=== PATIENT | female | born 1975 | race Hispanic/Latino ===

== ENCOUNTER 2017-11-18 12:14 | Emergency (ER) | payer BC, OTHER ==
[2017-11-18 14:12] LABS: Absolute Lymphocytes (CBC) 1.7 K/uL (0.7-4.9); Absolute Monocytes 0.6 K/uL (0.1-1.3); Absolute Neutrophil 4.6 K/uL (1.8-8.0); Basophils % 0.6 % (0-1.3); Eosinophils % 1.5 % (0-4.4); Hematocrit 43.3 % (36.0-45.0); Lymphocytes % 24.2 % (15.3-44.8); MCH 29.9 pg (27.0-35.0); MCV 90.8 fL (80-100); MPV 9.7 fL (7.6-11.3); Monocytes % 8.6 % (3.3-12.3); RBC Red Blood Cell Count 4.77 M/uL (3.86-4.86)
[2017-11-18 14:20] LABS: Urine Blood 3+ (NEG); Urine Glucose NEGATIVE (NEG); Urine Protein NEGATIVE (NEG); Urine Specific Gravity 1.015 (1.005-1.030)
[2017-11-18 14:20] LABS: Bicarbonate 24 mEq/L (21-31); Glucose Level 97 mg/dL (65-120); Potassium 3.6 mEq/L (3.6-5.0); Sodium Level 140 mEq/L (135-145)
[2017-11-18 14:23] LABS: ALT/SGPT 17 IU/L (10-60); AST/SGOT 20 IU/L (10-42); Albumin 3.9 g/dL (3.2-5.5); Alkaline Phosphatase 48 IU/L (42-121); BUN Blood Urea Nitrogen 11 mg/dL (6-20); Bilirubin Total 0.4 mg/dL (0.3-1.2); Protein, Total 6.8 g/dL (6.0-8.3)
--- NOTE | 2017-11-18 14:56 | RAD REPORT ---
EXAM DESCRIPTION: US - TRANSVAG OB - 11/18/2017 2:39 pm CLINICAL HISTORY: Vaginal bleeding, positive COMPARISON: None. FINDINGS: Any elongated irregular sac is present within the endometrial cavity. If this is a gestati onal sac corresponds to 8 weeks 3 days in size. There is echogenic material present but this cannot b e confirmed as a pole. No cardiac activity within this echogenic material. Small cysts are pres ent in the cervix. No mass or hematoma within the endometrial cavity. No suspicious ovarian or adnexa l finding. Left ovary was not well visualized but no left adnexal abnormality suspected. No free flui d in the cul-de-sac. IMPRESSION: An elongated sac is present in the uterus. This is probably an abnormal gestational sac. No pole confirmed at this time. No hematoma, mass or other intrauterine abnormality. No suspicious adnexal finding.
--- NOTE | 2017-11-18 15:08 | EDPHYS ---
Physician Documentation [facility] Name: Irene Church Age: 42 yrs Sex: Female : 1975 Arrival Date: 11/18/2017 Time: 12:18 Bed 24 Private MD: None, None ED Physician Josué Moctezuma HPI: 11/18 14:54 This 42 yrs old Female presents to ER via Ambulatory with complaints of wa Vaginal Bleeding, + Preg <12wks. 14:54 The patient presents to the emergency department with 9 weeks preg. states spotting x 1 wa week. today noted blood when wipes. denies pelvic or abd pain. states would like baby checked. denies dysuria, or frequency. G5, P4. vag deliveries. The estimated gestational age is 9 weeks. course: care: saw her OB today. Previous pregnancies: in previous pregnancies patient has had vaginal delivery. Associated signs and symptoms: The patient has no apparent associated signs or symptoms. The patient has not experienced similar symptoms in the past. The patient has been recently seen by a physician: saw her OB today. CHEMIST: 12:24 LMP 09/11/2017 14:54 5, Full Term 4, Premature 0, 0, Living 4 wa Historical: - Allergies: 12:23 No Known Allergies; hj - Home Meds: 12:23 Effexor XR 150 mg Oral cp24 1 cap once daily [Active]; Vitamin Oral [Active]; hj - PMHx: 12:23 Depression; hj - PSHx: 12:23 Cholecystectomy; EGD; hj - Immunization history:: Adult Immunizations up to date. - Social history:: Smoking status: Patient/guardian denies using tobacco. - Family history:: not pertinent. - Hospitalizations: : No recent hospitalization is reported. ROS: 14:57 Constitutional: Negative for fever, chills, and weight loss, Eyes: Negative for injury, wa pain, redness, and discharge, ENT: Negative for injury, pain, and discharge, Neck: Negative for injury, pain, and swelling, Cardiovascular: Negative for chest pain, palpitations, and edema, Respiratory: Negative for shortness of breath, cough, wheezing, and pleuritic chest pain, Abdomen/GI: Negative for abdominal pain, nausea, vomiting, diarrhea, and constipation, Back: Negative for injury and pain, MS/Extremity: Negative for injury and deformity, Skin: Negative for injury, rash, and discoloration, Neuro: Negative for headache, weakness, numbness, tingling, and seizure. 14:57 : Positive for vaginal bleeding, Negative for urinary symptoms, pelvic pain, flank pain. 14:57 All other systems are negative. Exam: 14:57 Constitutional: This is a well developed, well nourished patient who is awake, alert, wa and in no acute distress. Head/Face: Normocephalic, atraumatic. Eyes: Pupils equal round and reactive to light, extra-ocular motions intact. Lids and lashes normal. Conjunctiva and sclera are non-icteric and not injected. Cornea within normal limits. Periorbital areas with no swelling, redness, or edema. ENT: Nares patent. No nasal discharge, no septal abnormalities noted. Tympanic membranes are normal and external auditory canals are clear. Oropharynx with no redness, swelling, or masses, exudates, or evidence of obstruction, uvula midline. Mucous membranes moist. Neck: Trachea midline, no thyromegaly or masses palpated, and no cervical lymphadenopathy. Supple, full range of motion without nuchal rigidity, or vertebral point tenderness. No Meningismus. Chest/axilla: Normal chest wall appearance and motion. Nontender with no deformity. No lesions are appreciated. Cardiovascular: Regular rate and rhythm with a normal S1 and S2. No gallops, murmurs, or rubs. Normal PMI, no JVD. No pulse deficits. Respiratory: Lungs have equal breath sounds bilaterally, clear to auscultation and percussion. No rales, rhonchi or wheezes noted. No increased work of breathing, no retractions or nasal flaring. Abdomen/GI: Soft, non-tender, with normal bowel sounds. No distension or tympany. No guarding or rebound. No evidence of tenderness throughout. Back: No spinal tenderness. No costovertebral tenderness. Full range of motion. Skin: Warm, dry with normal turgor. Normal color with no rashes, no lesions, and no evidence of cellulitis. MS/ Extremity: Pulses equal, no cyanosis. Neurovascular intact. Full, normal range of motion. Neuro: Awake and alert, GCS 15, oriented to person, place, time, and situation. Cranial nerves II-XII grossly intact. Motor strength 5/5 in all extremities. Sensory grossly intact. Cerebellar exam normal. Normal gait. Psych: Awake, alert, with orientation to person, place and time. Behavior, mood, and affect are within normal limits. Vital Signs: 12:24 BP 112 / 60; Pulse 89; Resp 18; Temp 98.4(TE); Pulse Ox 99% on R/A; Weight 88 kg; hj Height 5 ft. 3 in. (160.02 cm); Pain 0/10; 13:42 BP 113 / 79; Pulse 74; Resp 18; Pulse Ox 98% on R/A; tw2 14:56 BP 118 / 82; Pulse 87; Resp 18; Pulse Ox 100% on R/A; tw2 12:24 Body Mass Index 34.37 (88.00 kg, 160.02 cm) hj MDM: 12:46 Patient medically screened. sc 14:58 Differential diagnosis: ectopic . sc 15:04 Data reviewed: vital signs, nurses notes, lab test result(s). Test interpretation: by sc ED physician or midlevel provider: labs noted for ABO/RH O pos. Beta quant 81304. US: abnml gestational sac. No suspicious findings in adnexa, per radiologist. Response to treatment: the patient's symptoms have mildly improved after treatment. 11/18 13:23 Order name: Quantitative Hcg; Complete Time: 14:59 sc 11/18 13:23 Order name: Abo/rh Typing; Complete Time: 14:59 sc 11/18 13:23 Order name: CBC with Diff; Complete Time: 14:59 sc 11/18 13:23 Order name: CMP; Complete Time: 14:59 sc 11/18 13:52 Order name: Urine Dipstick--Ancillary (enter results); Complete Time: 14:59 ag 11/18 13:23 Order name: IV Saline Lock; Complete Time: 13:33 sc 11/18 13:23 Order name: Labs collected and sent; Complete Time: 13:33 sc 11/18 13:23 Order name: NPO; Complete Time: 13:24 sc 11/18 13:23 Order name: Urine Dipstick-Ancillary (obtain specimen); Complete Time: 13:50 sc 11/18 13:52 Order name: Urine --Ancillary (enter results); Complete Time: 14:59 ag 11/18 14:38 Order name: TRANSVAG OB; Complete Time: 14:59 EDMS Administered Medications: No medications were administered Point of Care Testing: Urine : 14:37 hCG Reading: Positive; tw2 Disposition: 11/18/17 15:08 Discharged to Home. Impression: Abnormal , Blighted ovum, vaginal bleeding. - Condition is Stable. - Discharge Instructions: Blighted Ovum. - Medication Reconciliation Form, Thank You Letter, Antibiotic Education, Prescription Opioid Use form. - Follow up: Sree Childers MD; When: 1 - 2 days; Reason: Recheck today's complaints. - Problem is new. - Symptoms have improved. - Notes: follow up with Dr. Childers. As discussed with you, this appears to be abnormal as we do not see a normal pole although your hormone levels show we should be seeing one this far out in Signatures: Dispatcher [employer] EDMS Eron Bernard RN RN hj Tita De Luna RN RN tw2 Josué Moctezuma MD MD sc Corrections: (The following items were deleted from the chart) 13:47 13:44 BASIC METABOLIC PANEL+C.LAB.BRZ ordered. EDMS EDMS 14:38 13:44 Pelvis Complete+US.RAD.BRZ ordered. EDME EDMS 15:15 15:08 11/18/2017 15:08 Discharged to Home. Impression: Abnormal ; Blighted tw2 ovum; vaginal bleeding. Condition is Stable. Forms are Medication Reconciliation Form, Thank You Letter, Antibiotic Education, Prescription Opioid Use. Follow up: Sree Childers; When: 1 - 2 days; Reason: Recheck today's complaints. Problem is new. Symptoms have improved. wa
--- NOTE | 2017-11-18 15:08 | ER ---
Nurse's Notes [facility] Name: Irene Church Age: 42 yrs Sex: Female : 1975 Arrival Date: 11/18/2017 Time: 12:18 Bed 24 Private MD: None, None Diagnosis: Abnormal ;Blighted ovum;vaginal bleeding Presentation: 11/18 12:21 Presenting complaint: Patient states: LMP- 09/11/17; i noticed bleeding light pink, last hj week and now its red in color; spotty in nature; went to an appointment today, SNOUT PULLER did hear a heart beat but i wasn't bleeding at that time, now i am; denies abd pain, denies nausea and vomiting;. Transition of care: patient was not received from another setting of care. Onset of symptoms was November 18, 2017. Initial Sepsis Screen: Does the patient meet any 2 criteria? No. Patient's initial sepsis screen is negative. Does the patient have a suspected source of infection? No. Patient's initial sepsis screen is negative. Care prior to arrival: None. 12:21 Method Of Arrival: Ambulatory 12:21 Acuity: ANDERS 3 hj Triage Assessment: 12:23 General: Appears in no apparent distress. uncomfortable, Behavior is calm, cooperative, hj appropriate for age. Pain: Denies pain. : Reports vaginal bleeding that is. [employer]CH[employer]ICIAN: 12:24 LMP 09/11/2017 14:54 5, Full Term 4, Premature 0, 0, Living 4 wa Historical: - Allergies: 12:23 No Known Allergies; hj - Home Meds: 12:23 Effexor XR 150 mg Oral cp24 1 cap once daily [Active]; Vitamin Oral [Active]; hj - PMHx: 12:23 Depression; hj - PSHx: 12:23 Cholecystectomy; EGD; hj - Immunization history:: Adult Immunizations up to date. - Social history:: Smoking status: Patient/guardian denies using tobacco. - Family history:: not pertinent. - Hospitalizations: : No recent hospitalization is reported. Screenin:56 Abuse screen: Denies threats or abuse. Nutritional screening: No deficits noted. tw2 Tuberculosis screening: No symptoms or risk factors identified. Fall Risk None identified. Assessment: 12:45 General: Appears in no apparent distress. well groomed, Behavior is calm, cooperative, tw2 appropriate for age. Pain: Denies pain. Neuro: Level of Consciousness is awake, alert, obeys commands, Oriented to person, place, time, situation. Cardiovascular: Denies chest pain, shortness of breath, Heart tones S1 S2 Capillary refill < 3 seconds Patient's skin is warm and dry. Respiratory: Airway is patent Respiratory effort is even, unlabored, Respiratory pattern is regular, symmetrical, Breath sounds are clear bilaterally. GI: No signs and/or symptoms were reported involving the gastrointestinal system. : Reports "bright red bleeding when I wipe" "I was just at the OB doctor this morning". Derm: No signs and/or symptoms reported regarding the dermatologic system. Musculoskeletal: No signs and/or symptoms reported regarding the musculoskeletal system. Range of motion: intact in all extremities. 13:44 Obstetrical Assessment: Patient reports "bright red bleeding when I wipe". tw2 14:35 Reassessment: pt in US at this time, not available for VS. tw2 14:55 Reassessment: Patient appears in no apparent distress at this time. No changes from tw2 previously documented assessment. Patient and/or family updated on plan of care and expected duration. Pain level reassessed. Patient is alert, oriented x 3, equal unlabored respirations, skin warm/dry/pink. Vital Signs: 12:24 BP 112 / 60; Pulse 89; Resp 18; Temp 98.4(TE); Pulse Ox 99% on R/A; Weight 88 kg; hj Height 5 ft. 3 in. (160.02 cm); Pain 0/10; 13:42 BP 113 / 79; Pulse 74; Resp 18; Pulse Ox 98% on R/A; tw2 14:56 BP 118 / 82; Pulse 87; Resp 18; Pulse Ox 100% on R/A; tw2 12:24 Body Mass Index 34.37 (88.00 kg, 160.02 cm) Vitals: 13:43 Heart Tones n/a provider ordered transvaginal us. tw2 ED Course: 12:18 Patient arrived in ED. mr 12:18 None, None is Private Physician. mr 12:23 Triage completed. hj 12:24 Arm band placed on left wrist. hj 12:45 Josué Moctezuma MD is Attending Physician. wa 12:46 De Luna, Tita, RN is Primary Nurse. tw2 12:47 Placed in gown. Bed in low position. Pulse ox on. NIBP on. Door closed. Warm blanket tw2 given. 13:30 Inserted saline lock: 20 gauge in right antecubital area, using aseptic technique. tw2 Blood collected. 14:37 No provider procedures requiring assistance completed. tw2 14:39 TRANSVAG OB In Process Unspecified. EDMO 15:06 Sree Childers MD is Referral Physician. wa 15:15 IV discontinued, intact, bleeding controlled, No redness/swelling at site. Pressure tw2 dressing applied. Administered Medications: No medications were administered Point of Care Testing: Urine : 14:37 hCG Reading: Positive; tw2 Outcome: 15:08 Discharge ordered by . wa 15:15 Discharged to home ambulatory. tw2 15:15 Condition: stable 15:15 Discharge instructions given to patient, Instructed on discharge instructions, follow up and referral plans. Demonstrated understanding of instructions, follow-up care. 15:15 Patient left the ED. tw2 Signatures: Dispatcher [employer] [facility] Karin Santos Henry, RN RN Tita De Luna, RADHA RN tw2 Josué Moctezuma MD MD wa Corrections: (The following items were deleted from the chart) 12:26 12:24 Pulse 89bpm; Resp 18bpm; Pulse Ox 99% RA; Temp 98.4F Temporal; 88 kg; Height 5 hj ft. 3 in.; BMI: 34.3; Pain 0/10; hj
== END 2017-11-18 15:15 | disposition home or self-care (01) ==
LOC: ER 12:14
DX: O02.0 Blighted ovum and nonhydatidiform mole (principal)
CPT/HCPCS: 36415; 76813; 80053; 81003; 81025; 84702; 85025; 86900; 86901; 99284

== ENCOUNTER 2017-11-26 06:00 | Day surgery (SDC) | payer OTHER ==
[2017-11-25 17:09] LABS: Absolute Lymphocytes (CBC) 2.5 K/uL (0.7-4.9); Absolute Monocytes 0.5 K/uL (0.1-1.3); Eosinophils % 2.1 % (0-4.4); Hematocrit 43.6 % (36.0-45.0); MCH 30.4 pg (27.0-35.0); MPV 9.5 fL (7.6-11.3); Monocytes % 5.6 % (3.3-12.3); RBC Red Blood Cell Count 4.85 M/uL (3.86-4.86)
[2017-11-25 17:25] LABS: Urine Appearance CLEAR; Urine Bilirubin NEGATIVE (NEG); Urine Blood 3+ (NEG); Urine Color YELLOW; Urine Glucose NEGATIVE (NEG); Urine Protein NEGATIVE (NEG); Urine Specific Gravity >=1.030 (1.005-1.030); Urine pH 5.5 (5.0-7.0)
[2017-11-25 17:31] LABS: Urine Microscopic Reflex ORDER UMIC
[2017-11-25 17:54] LABS: Urine Bacteria 20-50 /HPF (<20); Urine Culture Reflex Order REFLEXED
[2017-11-26] MEDS ORDERED: OXYTOCIN 10 UNIT/ML ML IV ONE ×2 (06:19→06:44)
[2017-11-26] MEDS ORDERED: Ringers Lactate 1,000 ML IV ONE ×2 (06:19→08:01)
[2017-11-26] MEDS ORDERED: CEFAZOLIN/SWI 1gm 1 GM/10 ML SYR ONE (06:19)
[2017-11-26] MEDS ORDERED: SILVER NITRATE 1 APPL TOP ONE (06:42)
[2017-11-26] MEDS ORDERED: METHYLERGONOVINE 0.2MG/ML AMP IM ONE (06:43)
[2017-11-26] MEDS ORDERED: FENTANYL CITR 100 MCG/2 ML ONE ×2 (06:45→07:28)
[2017-11-26] MEDS ORDERED: MIDAZOLAM HCL 2 MG/2 ML INJ ONE (06:45)
[2017-11-26] MEDS ORDERED: PROPOFOL 200 MG/20 ML VIAL IV ONE (06:45)
[2017-11-26] MEDS ORDERED: KETOROLAC 30 MG/ML INJ ONE (07:56)
[2017-11-26] MEDS ORDERED: KETOROLAC 30 MG/ML INJ IV ONE (07:58)
--- NOTE | 2017-11-26 11:56 | PREOPHP ---
Date of Admission: 11/26/2017 History Of Present Illness: This is a 42-year-old, multiparous female, first trimester missed aborti on. She is Rh positive, therefore no RhoGAM necessary. Options discussed including expected managem ent. The patient wishes to proceed with D and C. Infection, blood loss, anesthetic complications, i njury to bladder, bowel, ureter, postoperative complications, clots in legs, and pneumonia discussed. The patient knows fully well this does not constitute all the possible problems that could occur du ring or following surgery. Family History: The patient has had gallstones and her mother is had gallstones. Mother has hyperte nsion. Father with prostate cancer. The patient has been on Effexor prior to the , and on Herbal Life for weight loss. Social History: She does not smoke. She does have dentures. She knows to remove these prior to noa betty tomorrow morning. Physical Examination: HEENT: Clear. Pupils equal, round, and reactive to light and accommodation. Conjunctivae well perf used. No oral, lingual, or buccal lesions. Chest and Lungs: Clear. Heart: Without murmurs, thrills, heaves, or rubs. Breasts: Not examined. Abdomen: Obese but clear. Uterus is irregular. The patient is known to have fibroids and is in abo ut the 9 to 11 weeks size range. Cervix cleaned. Laminaria tent inserted and packing placed. We are clear for surgery tomorrow [facility]. Full discussion with patient and . CHINYERE/YARELY Voice ID: [id number]
--- NOTE | 2017-11-26 19:12 | DS ---
Date of Discharge: 11/26/2017 Hospital Course: The patient underwent suction curettage for missed , general anesthesia, an d endotracheal intubation. Blood loss of less than 50 cc. She had 1 g of Ancef given for prophylaxi s. She will be observed for 2 hours, then dismissed. She is to return to my office in 1 week for fo llowup. She is to report any temperature elevation of 100 degrees or greater, severe pain, heavy ble eding, or any other type of abnormalities. Dismissed with Cytotec to be taken 100 mcg every 4 hours for 4 doses, doxycycline to be taken 3 times once tonight, twice tomorrow. She is Rh positive, there fore no RhoGAM needed. Final Diagnoses: First trimester, missed , suction curettage for uterine evacuation, and gen eral anesthesia. CHINYERE/YARELY Voice ID: [id number] Report ID: [id number]
--- NOTE | 2017-11-29 11:48 | OP ---
Surgeon: Sree Childers MD Indications For Procedure: Irene Church was 42-year-old, multiparous female, first trimester, miss ed . Rh positive, therefore no RhoGAM needed. Infection, blood loss, anesthetic complicatio ns injury to bladder, bowel, ureter, postoperative complications, clots in legs, and pneumonia discus sed. The patient knows fully well this does not constitute all the possible problems that could occu r during or following surgery. Anesthesia: General anesthesia, endotracheal intubation. Description Of Procedure: Time-out performed. Laminaria tent and packing placed the evening prior w ere removed. The patient received 1 g of Ancef preoperatively. Ring clamp was placed on the anterio r cervical lip. The cervix admitted the largest dilator without any difficulty. A 10 mm curved suct ion curette was used to evacuate the obviously necrotic intrauterine contents. After suction curetta ge, sharp curettement, a second suction and a second sharp curettement was performed. 0.2 mg of Methe rgine given IM. Blood Loss: 50 cc or less. The patient tolerated all procedures well. Procedure was discontinued. The patient was sent to the recovery room in good condition. Final Diagnoses: First trimester, missed , and suction curettage for uterine evacuation. CHINYERE/YARELY Voice ID: [id number] Report ID: [id number]
== END 2017-11-26 10:35 | disposition home or self-care (01) ==
LOC: OR 06:00
PROVIDERS: ATTEND Specialist
PROC: 10D17ZZ Extraction of Products of Conception, Retained, Via Natural or Artificial Opening (ICD-10-PCS; principal; 2017-11-26 07:30)
DX: O02.1 Missed abortion (principal)
CPT/HCPCS: 36415; 81003; 81015; 85025; 85610; 85730; 86850; 86900; 86901; 87086; 87088; 88305; J0690; J2210; J2250; J2590; J3010

== ENCOUNTER 2018-10-07 12:50 | Day surgery (SDC) | payer OTHER, SELFPAY ==
[2018-10-07 13:38] LABS: Absolute Lymphocytes (CBC) 2.5 K/uL (0.7-4.9); Absolute Monocytes 0.8 K/uL (0.1-1.3); Absolute Neutrophil 10.2 K/uL (1.8-8.0); Basophils % 0.8 % (0-1.3); Eosinophils % 1.5 % (0-4.4); Hematocrit 43.3 % (36.0-45.0); MPV 10.1 fL (7.6-11.3); Monocytes % 5.8 % (3.3-12.3); RBC Red Blood Cell Count 4.77 M/uL (3.86-4.86)
[2018-10-07] MEDS ORDERED: FAMOTIDINE 20 MG/2 ML VIAL IV ONE (13:38)
[2018-10-07] MEDS ORDERED: MORPHINE 4 MG/ML SYR ONE (13:38)
[2018-10-07] MEDS ORDERED: ONDANSETRON 4 MG/2 ML VIAL ONE ×2 (13:38→19:53)
[2018-10-07 13:59] LABS: Albumin 3.8 g/dL (3.4-5.0); Bilirubin Direct 0.1 mg/dL (0-0.2); Bilirubin Total 0.3 mg/dL (0.2-1.0); Potassium 3.1 mmol/L (3.5-5.1); Protein, Total 7.4 g/dL (6.4-8.2)
[2018-10-07 14:22] LABS: Urine Blood 2+ (NEG); Urine Glucose NEGATIVE (NEG); Urine Protein 3+ (NEG); Urine pH 5.5 (5.0-7.0)
--- NOTE | 2018-10-07 15:31 | RAD REPORT ---
EXAM DESCRIPTION: CT - Abdomen Pelvis W Contrast - 10/07/2018 3:11 pm CLINICAL HISTORY: Abdominal pain. Right upper quadrant. COMPARISON: 2016 ultrasound TECHNIQUE: Computed axial tomography of the abdomen and pelvis was obtained. 100 cc Isovue-300 is ad ministered intravenously. Oral contrast was given. All CT scans are performed using dose optimization technique as appropriate and may include automated exposure control or mA/KV adjustment according to patient size. FINDINGS: The liver, spleen, pancreas, adrenals and kidneys appear unremarkable. The appendix is normal caliber. There is no evidence of diverticulitis A 10 centimeter left adnexal mass is heterogeneous. It contains mostly consistent with a dermoid. No significant free fluid IMPRESSION: 10 centimeter left adnexal dermoid
[2018-10-07] MEDS ORDERED: KETOROLAC 30 MG/ML INJ ONE ×2 (16:27→19:52)
--- NOTE | 2018-10-07 16:46 | EDPHYS ---
Physician Documentation [facility] Name: Irene Church Age: 43 yrs Sex: Female : 1975 Arrival Date: 10/07/2018 Time: 12:51 Bed 7 Private MD: Jacobo Harrington R ED Physician Farrukh Martinez HPI: 10/07 13:15 This 43 yrs old Female presents to ER via Ambulatory with complaints of ros Abdominal Pain, Back Pain. 13:15 The patient presents with pain that is acute. The symptoms are located in the low back. ros 13:15 The patient presents with abdominal pain in the epigastric area, in the upper abdomen, ros in the right upper quadrant, right lower quadrant. Onset: The symptoms/episode began/occurred yesterday. Onset: The symptoms/episode began/occurred 1 day(s) ago. The pain does not radiate. Associated signs and symptoms: The patient has no apparent associated signs or symptoms. The problem was sustained from unknown cause. Modifying factors: The patient symptoms are alleviated by nothing, the patient symptoms are aggravated by nothing. Severity of symptoms: At their worst the symptoms were moderate, in the emergency department the symptoms have improved, mildly. 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 tw2 Historical: - Allergies: 13:01 No Known Allergies; ch - Home Meds: 13:01 Effexor XR 150 mg Oral cp24 1 cap once daily [Active]; herbalife enegry pills [Active]; ch - PMHx: 13:01 Depression; Anxiety; ch 13:02 rls; ch - PSHx: 13:01 Cholecystectomy; EGD; ch - Immunization history:: Adult Immunizations up to date. - Social history:: Smoking status: Patient/guardian denies using tobacco, Patient uses street drugs, marijuana, Patient/guardian denies using alcohol. - Ebola Screening: : Patient negative for fever greater than or equal to 101.5 degrees Fahrenheit, and additional compatible Ebola Virus Disease symptoms Patient denies exposure to infectious person Patient denies travel to an Ebola-affected area in the 21 days before illness onset No symptoms or risks identified at this time. - Family history:: not pertinent. ROS: 13:15 Constitutional: Negative for fever, chills, and weight loss, Eyes: Negative for injury, ros pain, redness, and discharge, ENT: Negative for injury, pain, and discharge, Neck: Negative for injury, pain, and swelling, Cardiovascular: Negative for chest pain, palpitations, and edema, Respiratory: Negative for shortness of breath, cough, wheezing, and pleuritic chest pain, Back: Negative for injury and pain, : Negative for injury, bleeding, discharge, and swelling, MS/Extremity: Negative for injury and deformity, Skin: Negative for injury, rash, and discoloration, Neuro: Negative for headache, weakness, numbness, tingling, and seizure, Psych: Negative for depression, anxiety, suicide ideation, homicidal ideation, and hallucinations, Allergy/Immunology: Negative for hives, rash, and allergies, Endocrine: Negative for neck swelling, polydipsia, polyuria, polyphagia, and marked weight changes, Hematologic/Lymphatic: Negative for swollen nodes, abnormal bleeding, and unusual bruising. 13:15 Abdomen/GI: Positive for abdominal pain, of the epigastric area, posterior aspect of right lateral abdomen, anterior aspect of right lateral abdomen, right upper quadrant and right lower quadrant. Exam: 13:15 Constitutional: This is a well developed, well nourished patient who is awake, alert, ros and in no acute distress. Head/Face: Normocephalic, atraumatic. Eyes: Pupils equal round and reactive to light, extra-ocular motions intact. Lids and lashes normal. Conjunctiva and sclera are non-icteric and not injected. Cornea within normal limits. Periorbital areas with no swelling, redness, or edema. ENT: Nares patent. No nasal discharge, no septal abnormalities noted. Tympanic membranes are normal and external auditory canals are clear. Oropharynx with no redness, swelling, or masses, exudates, or evidence of obstruction, uvula midline. Mucous membranes moist. Neck: Trachea midline, no thyromegaly or masses palpated, and no cervical lymphadenopathy. Supple, full range of motion without nuchal rigidity, or vertebral point tenderness. No Meningismus. Chest/axilla: Normal chest wall appearance and motion. Nontender with no deformity. No lesions are appreciated. Cardiovascular: Regular rate and rhythm with a normal S1 and S2. No gallops, murmurs, or rubs. Normal PMI, no JVD. No pulse deficits. Respiratory: Lungs have equal breath sounds bilaterally, clear to auscultation and percussion. No rales, rhonchi or wheezes noted. No increased work of breathing, no retractions or nasal flaring. Back: No spinal tenderness. No costovertebral tenderness. Full range of motion. Female : Normal external genitalia. Skin: Warm, dry with normal turgor. Normal color with no rashes, no lesions, and no evidence of cellulitis. MS/ Extremity: Pulses equal, no cyanosis. Neurovascular intact. Full, normal range of motion. Neuro: Awake and alert, GCS 15, oriented to person, place, time, and situation. Cranial nerves II-XII grossly intact. Motor strength 5/5 in all extremities. Sensory grossly intact. Cerebellar exam normal. Normal gait. Psych: Awake, alert, with orientation to person, place and time. Behavior, mood, and affect are within normal limits. 13:15 Abdomen/GI: Inspection: abdomen appears normal, Bowel sounds: normal, Palpation: moderate abdominal tenderness, in the epigastric area, right upper quadrant and right lower quadrant. Vital Signs: 12:58 BP 76 / 35 RA Sitting (auto/reg); Pulse 123; Resp 22; Pulse Ox 92% on R/A; ch 13:02 BP 108 / 57 Supine; Pulse 92; Resp 14; Pulse Ox 100% on R/A; hb 15:00 BP 119 / 68; Pulse 100; Resp 15; Pulse Ox 99% on R/A; hb 16:19 BP 108 / 57; Pulse 85; Resp 17; Pulse Ox 100% on R/A; tw2 17:09 Temp 97.9(TE); tw2 17:28 BP 129 / 85; Pulse 86; Resp 16; Pulse Ox 100% on R/A; Pain 3/10; hb 12:58 pt is pale and states she thinks she needs to pass out. MDM: 13:04 Patient medically screened. [facility] 13:19 Data reviewed: vital signs, nurses notes, lab test result(s), EKG, radiologic studies, [facility] CT scan. 10/07 13:15 Order name: Basic Metabolic Panel; Complete Time: 16:02 [facility] 10/07 13:15 Order name: CBC with Diff; Complete Time: 16:02 [facility] 10/07 13:15 Order name: Creatinine for Radiology; Complete Time: 16:02 [facility] 10/07 13:15 Order name: Hepatic Function; Complete Time: 16:02 [facility] 10/07 13:15 Order name: Lipase; Complete Time: 16:02 [facility] 10/07 13:15 Order name: Urine Culture [facility] 10/07 13:15 Order name: CT Abd/Pelvis - W/Contrast; Complete Time: 16:02 [facility] 10/07 13:58 Order name: Urine Dipstick--Ancillary (enter results); Complete Time: 16:02 10/07 13:58 Order name: Urine --Ancillary (enter results); Complete Time: 16:02 10/07 16:04 Order name: US Transvaginal Study (Probe) [facility] 10/07 16:21 Order name: CA 125 Antigen [facility] 10/07 16:53 Order name: PT-INR [facility] 10/07 16:53 Order name: Ptt, Activated [facility] 10/07 17:25 Order name: Type And Screen 10/07 13:15 Order name: IV Saline Lock; Complete Time: 13:50 [facility] 10/07 13:15 Order name: Labs collected and sent; Complete Time: 13:50 [facility] 10/07 13:15 Order name: Urine Dipstick-Ancillary (obtain specimen); Complete Time: 13:50 [facility] 10/07 13:15 Order name: Urine Test (obtain specimen); Complete Time: 13:50 [facility] 10/07 16:53 Order name: Chest Single View XRAY [facility] 10/07 16:53 Order name: EKG; Complete Time: 16:53 [facility] 10/07 16:53 Order name: EKG - Nurse/Tech; Complete Time: 17:31 [facility] 10/07 17:27 Order name: RAD [facility] 10/07 17:09 Order name: NPO; Complete Time: 17:58 [facility] 10/07 17:20 Order name: Labs - recollect needed; Complete Time: 17:58 iw Administered Medications: 13:33 Drug: Pepcid 20 mg Route: IVP; Site: right antecubital; hb 14:33 Follow up: Response: No adverse reaction tw2 13:33 Drug: Zofran 4 mg Route: IVP; Site: right antecubital; hb 14:33 Follow up: Response: No adverse reaction tw2 16:18 Drug: TORadol 30 mg Route: IVP; Site: right antecubital; tw2 16:48 Follow up: Response: No adverse reaction tw2 16:41 CANCELLED (Duplicate Order): Potassium Effervescent Tablet 25 mEq PO once; dissolve in ros 4 ounces of water or juice 17:08 Drug: Potassium Chloride 20 mEq Route: IV; Rate: per protocol; Site: right antecubital; tw2 17:55 Follow up: IV Status: Infusion continued upon admission tw2 17:08 Drug: NS 0.9% with KCl 20 mEq/L 1000 ml Route: IV; Rate: 125 ml/hr; Site: right tw2 antecubital; 17:55 Follow up: IV Status: Infusion continued upon admission tw2 17:23 Not Given (Patient Refused): morphine 4 mg IVP once tw2 Disposition: 10/07/18 16:45 Hospitalization ordered by Felisa Hernandez for Inpatient Admission. Preliminary diagnosis are Abdominal tenderness, Unspecified ovarian cysts - 12 cm left dermoid, Hypokalemia. - Bed requested for Telemetry/MedSurg (Inpatient). - Status is Inpatient Admission. tw2 - Condition is Stable. - Problem is new. - Symptoms have improved. UTI on Admission? No Signatures: Dispatcher [employer] EDMS Adriana Garcia RN RN ch Anderson, Corey, MD MD cha Williams, Irene, RN RN Nicolle Marrufo RN RN hb Wise, Tara, RN RN tw2 Purvi Youssef Corrections: (The following items were deleted from the chart) 16:41 16:19 Potassium Effervescent Tablet 25 mEq PO once; dissolve in 4 ounces of water or ros juice ordered. [facility] 16:41 16:19 Fluid Challenge ordered. pending sale to [facility] 16:53 16:45 Hospitalization Ordered by Felisa Hernandez MD for Observation. Preliminary [facility] diagnosis is Abdominal tenderness; Unspecified ovarian cysts - 12 cm left dermoid; Hypokalemia. Bed requested for Operating Room. Status is Observation. Condition is Stable. Problem is new. Symptoms have improved. UTI on Admission? No. [facility] 17:21 16:53 10/07/2018 16:45 Hospitalization Ordered by Felisa Hernandez MD for Inpatient eb Admission. Preliminary diagnosis is Abdominal tenderness; Unspecified ovarian cysts - 12 cm left dermoid; Hypokalemia. Bed requested for Operating Room. Status is Inpatient Admission. Condition is Stable. Problem is new. Symptoms have improved. UTI on Admission? No. ros 17:54 17:21 10/07/2018 16:45 Hospitalization Ordered by Felisa Hernandez MD for Inpatient tw2 Admission. Preliminary diagnosis is Abdominal tenderness; Unspecified ovarian cysts - 12 cm left dermoid; Hypokalemia. Bed requested for Telemetry/MedSurg (Inpatient). Status is Inpatient Admission. Condition is Stable. Problem is new. Symptoms have improved. UTI on Admission? No. eb
--- NOTE | 2018-10-07 16:46 | ER ---
Nurse's Notes [facility] Name: Irene Church Age: 43 yrs Sex: Female : 1975 Arrival Date: 10/07/2018 Time: 12:51 Bed 7 Private MD: Jacobo Harrington R Diagnosis: Abdominal tenderness;Unspecified ovarian cysts-12 cm left dermoid;Hypokalemia Presentation: 10/07 13:00 Presenting complaint: Patient states: pain to RUQ/R flank, started yesterday, went away, back today. denies nvd. Transition of care: patient was not received from another setting of care. Onset of symptoms was October 06, 2018 at 08:00. Risk Assessment: Do you want to hurt yourself or someone else? Patient reports no desire to harm self or others. Initial Sepsis Screen: Does the patient meet any 2 criteria? No. Patient's initial sepsis screen is negative. Does the patient have a suspected source of infection? No. Patient's initial sepsis screen is negative. Care prior to arrival: None. 13:00 Method Of Arrival: Ambulatory 13:00 Acuity: ANDERS 2 Triage Assessment: 13:09 General: Appears in no apparent distress. uncomfortable, Behavior is cooperative. 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 tw2 Historical: - Allergies: 13:01 No Known Allergies; - Home Meds: 13:01 Effexor XR 150 mg Oral cp24 1 cap once daily [Active]; herbalife enegry pills [Active]; - PMHx: 13:01 Depression; Anxiety; 13:02 rls; - PSHx: 13:01 Cholecystectomy; EGD; - Immunization history:: Adult Immunizations up to date. - Social history:: Smoking status: Patient/guardian denies using tobacco, Patient uses street drugs, marijuana, Patient/guardian denies using alcohol. - Ebola Screening: : Patient negative for fever greater than or equal to 101.5 degrees Fahrenheit, and additional compatible Ebola Virus Disease symptoms Patient denies exposure to infectious person Patient denies travel to an Ebola-affected area in the 21 days before illness onset No symptoms or risks identified at this time. - Family history:: not pertinent. Screenin:11 Abuse screen: Denies threats or abuse. Nutritional screening: No deficits noted. tw2 Tuberculosis screening: No symptoms or risk factors identified. Fall Risk None identified. Assessment: 13:15 General: Appears in no apparent distress. Behavior is calm, cooperative. Pain: Pain hb currently is 7 out of 10 on a pain scale. Neuro: Level of Consciousness is awake, alert, obeys commands, Oriented to person, place, time, situation. Cardiovascular: Capillary refill < 3 seconds Patient's skin is warm and dry. Respiratory: Airway is patent Trachea midline Respiratory effort is even, unlabored, Respiratory pattern is regular, symmetrical, Breath sounds are clear bilaterally. GI: Abdomen is non-distended, Bowel sounds present X 4 quads. Abd is soft and non tender X 4 quads. Reports right flank pain. : : No signs and/or symptoms were reported regarding the genitourinary system. EENT: No signs and/or symptoms were reported regarding the EENT system. Derm: Skin is intact, is healthy with good turgor. Musculoskeletal: No signs and/or symptoms reported regarding the musculoskeletal system. 14:00 Reassessment: Patient appears in no apparent distress at this time. Patient and/or hb family updated on plan of care and expected duration. Pain level reassessed. Patient is alert, oriented x 3, equal unlabored respirations, skin warm/dry/pink. 14:34 Reassessment: PT COMPLETED ORAL CONTRAST AT THIS TIME, NO ANSWER IN CT DEPT. tw2 15:00 Reassessment: Patient appears in no apparent distress at this time. Patient and/or hb family updated on plan of care and expected duration. Pain level reassessed. Patient is alert, oriented x 3, equal unlabored respirations, skin warm/dry/pink. 16:00 Reassessment: Patient appears in no apparent distress at this time. Patient and/or hb family updated on plan of care and expected duration. Pain level reassessed. Patient is alert, oriented x 3, equal unlabored respirations, skin warm/dry/pink. 17:00 Reassessment: Patient appears in no apparent distress at this time. Patient and/or hb family updated on plan of care and expected duration. Pain level reassessed. Patient is alert, oriented x 3, equal unlabored respirations, skin warm/dry/pink. Vital Signs: 12:58 BP 76 / 35 RA Sitting (auto/reg); Pulse 123; Resp 22; Pulse Ox 92% on R/A; ch 13:02 BP 108 / 57 Supine; Pulse 92; Resp 14; Pulse Ox 100% on R/A; hb 15:00 BP 119 / 68; Pulse 100; Resp 15; Pulse Ox 99% on R/A; hb 16:19 BP 108 / 57; Pulse 85; Resp 17; Pulse Ox 100% on R/A; tw2 17:09 Temp 97.9(TE); tw2 17:28 BP 129 / 85; Pulse 86; Resp 16; Pulse Ox 100% on R/A; Pain 3/10; hb 12:58 pt is pale and states she thinks she needs to pass out. ED Course: 12:51 Patient arrived in ED. as 12:51 Jacobo Harrington MD is Private Physician. 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 13:00 Bed in low position. Call light in reach. gm/svp global publisher business on. Pulse ox on. NIBP on. tw2 13:01 Triage completed. ch 13:03 Farrukh Martinez MD is Attending Physician. ros 13:09 Arm band placed on. hb 13:12 Inserted saline lock: 20 gauge in right antecubital area, using aseptic technique. ph Blood collected. 13:25 Tita De Luna RN is Primary Nurse. tw2 13:38 EKG done, by refrigeration technician. reviewed by Farrukh Martinez MD. sm3 15:[address] via wheelchair. ka 15:11 CT Abd/Pelvis - W/Contrast In Process Unspecified. EDMS 16:10 called and left a message with Dr. Smith's answering service to please call Dr. josé antonio Martinez for patient consultation. 16:38 Ultrasound completed. Patient tolerated well. Patient moved back from ultrasound. cy 16:40 US Transvaginal Study (Probe) In Process Unspecified. EDMS 16:43 Felisa Hernandez MD is Hospitalizing Provider. ros 17:08 Ptt, Activated Sent. tw2 17:10 X-ray completed. Portable x-ray completed in exam room. Patient tolerated procedure ml well. 17:28 No provider procedures requiring assistance completed. Patient admitted, IV remains in tw2 place. 17:32 Awaiting: attempted to call report was told RADHA Cabrera will have to call me back in 10 tw2 minutues. 17:57 Report given to RADHA Cabrera, informed that pt just left for OR at this time. tw2 Administered Medications: 13:33 Drug: Pepcid 20 mg Route: IVP; Site: right antecubital; hb 14:33 Follow up: Response: No adverse reaction tw2 13:33 Drug: Zofran 4 mg Route: IVP; Site: right antecubital; hb 14:33 Follow up: Response: No adverse reaction tw2 16:18 Drug: TORadol 30 mg Route: IVP; Site: right antecubital; tw2 16:48 Follow up: Response: No adverse reaction tw2 16:41 CANCELLED (Duplicate Order): Potassium Effervescent Tablet 25 mEq PO once; dissolve in ros 4 ounces of water or juice 17:08 Drug: Potassium Chloride 20 mEq Route: IV; Rate: per protocol; Site: right antecubital; tw2 17:55 Follow up: IV Status: Infusion continued upon admission tw2 17:08 Drug: NS 0.9% with KCl 20 mEq/L 1000 ml Route: IV; Rate: 125 ml/hr; Site: right tw2 antecubital; 17:55 Follow up: IV Status: Infusion continued upon admission tw2 17:23 Not Given (Patient Refused): morphine 4 mg IVP once tw2 Outcome: 16:45 Decision to Hospitalize by Provider. [facility] 17:28 Condition: stable tw2 17:28 Instructed on the need for admit. 17:51 Admitted to OR accompanied by nurse, via stretcher. tw2 17:54 Patient left the ED. tw2 Signatures: Dispatcher [employer] EDMS Adriana Garcia, RN Farrukh Diaz ch, MD MD cha Martinez, Amelia as Lopez, Melissa ml Hall, Patricia, RN RN Malika Lobo Heather, RN RN hb Wise, Tara, RN RN tw2 Halle Vasquez Elizabeth eb Montes, Shakira 3 Corrections: (The following items were deleted from the chart) 13:02 13:00 Acuity: ANDERS 3 ch ch 15:39 15:00 Reassessment: Patient appears in no apparent distress at this time. No changes hb from previously documented assessment. Patient and/or family updated on plan of care and expected duration. Pain level reassessed. Patient is alert, oriented x 3, equal unlabored respirations, skin warm/dry/pink. hb
[2018-10-07] MEDS ORDERED: NS KCL 20MEQ 1,000 ML IV ONE (17:02)
[2018-10-07] MEDS ORDERED: KCL 20 MEQ/100 mL IVPB 20 MEQ/100 ML BAG IV ONE (17:02)
--- NOTE | 2018-10-07 17:09 | RAD REPORT ---
EXAM DESCRIPTION: US - Transvaginal Study Probe - 10/07/2018 4:38 pm CLINICAL HISTORY: Pelvic pain COMPARISON: October 07 2018 FINDINGS: The uterus measures 8 x 6 x 6cm. A fibroid is not seen. Initial stripe measures 6 millimet ers. Right ovary is normal in size and echotexture. Left ovary is not seen. Within the left adnexae is an approximately 10 centimeter echogenic mass consistent with a dermoid. C olor Doppler does not demonstrate blood flow within the mass. No significant free fluid is seen. IMPRESSION: 10 centimeter left adnexal dermoid. Color Doppler does not demonstrate blood flow within the mass. This could indicate torsion or be secondary to the mass being hypovascular. This should be correlated clinically
--- NOTE | 2018-10-07 17:26 | RAD REPORT ---
EXAM DESCRIPTION: Julian Single View10/07/2018 5:15 pm CLINICAL HISTORY: cough COMPARISON: 2012 FINDINGS: The lungs appear clear of acute infiltrate. The heart is normal size IMPRESSION: No acute abnormalities displayed
[2018-10-07 18:06] LABS: Protime INR 1.05
[2018-10-07] MEDS ORDERED: Ringers Lactate 1,000 ML IV ONE ×2 (18:16→21:20)
[2018-10-07] MEDS ORDERED: FENTANYL CITR 100 MCG/2 ML ONE ×2 (18:51→20:24)
[2018-10-07] MEDS ORDERED: PROPOFOL 200 MG/20 ML VIAL IV ONE (18:51)
[2018-10-07] MEDS ORDERED: ROCURONIUM 50 MG/5 ML VIAL IV ONE (18:52)
[2018-10-07] MEDS ORDERED: LIDOCAINE 2% MPF 5 ML VIAL ONE (18:52)
[2018-10-07] MEDS ORDERED: DEXAMETHASONE 10 MG/ML VIAL ONE (19:53)
[2018-10-07] MEDS ORDERED: GLYCOPYRROLATE 0.2 MG/ML SYR ONE ×2 (20:03→20:14)
[2018-10-07] MEDS ORDERED: NEOSTIGMINE 1 MG/ML -10 ML VIAL ONE (20:15)
--- NOTE | 2018-10-07 21:17 | EKG ---
Test Date: 2018-10-07 Test Time: 13:11:38 [employer] Specialist: ILIANA MEASUREMENT RESULTS: Intervals: Rate: 88 FL: 136 QRSD: 100 QT: 390 QTc: 471 [place]: P: 70 FL: 136 QRS: 18 T: 63 INTERPRETIVE STATEMENTS: Normal sinus rhythm Normal ECG Compared to ECG 09/24/2012 03:36:45 Incomplete right bundle-branch block no longer present Electronically Signed On 10-07-18 21:16:24 CDT by Herminio Jauregui
[2018-10-07 22:26] VITALS: BMI 30.1
[2018-10-07] MEDS ORDERED: NS KCL 20MEQ 20 MEQ/1,000 ML BAG IV SCH (22:33)
[2018-10-07] MEDS ORDERED: ACETAMINOPHEN 500 MG TAB PO PRN (22:33)
[2018-10-07] MEDS ORDERED: MORPHINE 4 MG/ML SYR IV PRN (22:33)
[2018-10-07] MEDS ORDERED: ONDANSETRON 4 MG/2 ML VIAL IV PRN (22:33)
[2018-10-07] MEDS ORDERED: HYDROCODONE/APAP 5/325 MG TAB PO PRN ×2 (22:38→22:44)
[2018-10-07] MEDS ORDERED: MEPERIDINE HCL 50 MG/ML AMP IM PRN (22:44)
[2018-10-07] MEDS: Ringers Lactate 1,000 ML IV SCH (22:50)
[2018-10-08] MEDS: IBUPROFEN 400 MG TAB PO PRN ×2 (00:40→06:51)
[2018-10-08 04:20] VITALS: O2SAT 98
[2018-10-08 05:47] LABS: Absolute Lymphocytes (CBC) 0.8 K/uL (0.7-4.9); Absolute Monocytes 0.2 K/uL (0.1-1.3); Absolute Neutrophil 7.6 K/uL (1.8-8.0); Basophils % 0.2 % (0-1.3); Hematocrit 39.4 % (36.0-45.0); Lymphocytes % 9.6 % (15.3-44.8); MPV 9.8 fL (7.6-11.3); Monocytes % 2.5 % (3.3-12.3); RBC Red Blood Cell Count 4.35 M/uL (3.86-4.86)
[2018-10-08 05:55] LABS: ALT/SGPT 58 U/L (12-78); AST/SGOT 51 U/L (15-37); Albumin 3.2 g/dL (3.4-5.0); Alkaline Phosphatase 67 U/L (45-117); BUN Blood Urea Nitrogen 10 mg/dL (7-18); Bicarbonate 25 mmol/L (21-32); Bilirubin Direct 0.1 mg/dL (0-0.2); Bilirubin Total 0.3 mg/dL (0.2-1.0); Glucose Level 127 mg/dL (74-106); Lipase 68 U/L (73-393); Potassium 4.4 mmol/L (3.5-5.1); Protein, Total 6.7 g/dL (6.4-8.2); Sodium Level 143 mmol/L (136-145)
[2018-10-08] MEDS: Ringers Lactate 1,000 ML IV SCH (06:27)
--- NOTE | 2018-10-08 07:01 | OP ---
Date of Procedure: 10/07/2018 Surgeon: Felisa Hernandez MD Preoperative Diagnoses: Abdominal pelvic pain, right-sided, and complex adnexal mass, possibly dermo id. Postoperative Diagnoses: Abdominal pelvic pain, right-sided, complex adnexal mass, possibly dermoid, and left complex ovarian mass, and hydropic changes on both tubes. Procedures Performed: 1.Diagnostic laparoscopy and pelvic washings. 2.Left salpingo-oophorectomy and lysis of adhesions. Anesthesia: General. Specimens: Left tube and ovary, pelvic washings. Complications: None. Drains: None. Condition: The patient's condition stable. Indications: The patient is a 43-year-old, after being consented for the procedure, was taken back t o the OR, placed in supine fashion on the operating table. No antibiotics were given. This is a com pletely clean case with no indication for antibiotics. After the patient was given general anesthesi a, she was placed in a dorsal lithotomy position using Maxime stirrups. Pelvic exam was performed. U terus was found to be anteflexed, deviated to the right slightly, and left adnexal mass above the lev el of the uterus, mobile, no adhesions, and no nodularity in the cul-de-sac. Abdomen, vulva, vagina, and perineum were prepped and draped in a sterile fashion. Altamirano was placed to drain the bladder. A diagnostic VCare was introduced into the uterus for uterine manipulation. T his area was draped. A 1-cm infraumbilical incision was made with a scalpel. Using the open laparoscopy technique, the fa scia was incised, tagged with 0 Vicryl, and sutured on each side. Peritoneum was entered bluntly, S retractor was placed, and Billy was introduced. This was fixed in place. Site of entry was checked and was unremarkable. Upper abdominal cavity was inspected as well as diaphragm and both lobes of t he liver. Evidence of cholecystectomy. Absent gallbladder. No other scar tissue or other endometri otic lesions present. The omentum was inspected, it was unremarkable, and no abnormality. Pelvic ca vity was inspected. There was endometriosis in the anterior lateral wall on both sides of the anteri or abdominal wall, and there was a large left adnexal mass. The surface appeared to be smooth. Both tubes appeared to have hydropic changes, and no hydrosalpinges were noted. The right ovary was norm al. No anatomical distortion of the ureters. A 5-mm suprapubic and left lower quadrant ports were placed under direct vision. After pelvic washin gs were performed, the pedicle of the left ovary was visualized. A 5 mm LigaSure was used to take do wn the infundibulopelvic ligament. After this was cauterized, then went back to the utero-ovarian li gament, took this down, and dissected the utero-ovarian ligament on the same plane to the level of th e IP, and once the entire pedicle was isolated on the infundibulopelvic ligament, this was cauterized and cut, and the ovary . However, this was connected to the tube, and the tubal adhesions were dense to the ovary. The mesosalpinx was taken down from the fimbriated end towards the cornual end. Once this was dissected all the way, the cornual end was cauterized and cut, and the entire spe cimen was detached. Due to the size of the specimen, it was put in a 15 bag through the umbilical po rt. The specimen was placed inside the bag and the bag was closed. After thorough irrigation and jasmine ction of bed of dissection, there was excellent hemostasis. The ports were removed under direct visi on. Then, the umbilical incision was further extended to another 2 cm. The fascial incision was ext ended with the help of Santana scissors. The bag was opened up at this time, and the fluid attempted to be aspirated. However, this was thick and I had to make an incision with the help of scissors to op en up the sebaceous material, and hair had come out through this. Yankauer suction was used to avoid any spillage and suction all the contents from the bag, and the bag with the specimen was removed wi thout any contamination. These were handed off for permanent pathology. The fascia was closed with the help of a 0 Vicryl on a CT1 needle in a continuous running fashion. The tagged sutures were tied at the top. The subcutaneous tissues were irrigated with normal saline and suction. The subcutaneo us tissue was closed with the help of interrupted 0 Vicryl. Then, all the skin incisions were closed with the help of emre. VCare and the Altamirano were removed. Instrument, needle, and sponge counts were done and were correct at the end of the case. EBL was minimal. The patient tolerated the proce dure well. She was recovered from anesthesia in the OR and taken to PACU in a stable condition. She will follow up with me in 1 week for followup on the postop pathology. YESICA/YARELY Voice ID: [id number] Report ID: [id number]
[2018-10-08 07:50] LABS: Blood Morphology Comment NOT SEEN (NOT SEEN); Platelet Estimate ADEQ
[2018-10-08 09:02] VITALS: BP 134/84; TEMP 98.2
--- NOTE | 2018-10-09 22:30 | CON ---
Date of Consultation: 10/07/2018 History Of Present Illness: The patient is a 43-year-old G5, P4-0-1-4 with acute onset right upper q uadrant abdominal pain that was episodic for about a day and a half and found to have a left adnexal mass in the ER for which I was consulted. The patient had a remote history of right upper quadrant pain, had laparoscopic cholecystectomy. Rec ently, no pain other than an onset of right upper quadrant and right-sided abdominal pain about 1-1/2 day ago prior to the ER admission. The pain has been episodic during the time that it was worse, it was severely painful associated with nausea. No vomiting, fevers, chills. Periods regular, every 3 weeks, lasting 7-10 days, gotten heavier with time and complaints of occasional postcoital bleeding. Known history of right complex ovarian cyst [address] 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 She is 5, para 4-0-1-4, 4 vaginal deliveries and 1 miscarriage for the first trimester for which she underwent a D and C in November of 2017 in this hospital. No abnormal Paps. Monogamous patient. No low er urinary tract symptoms or bowel symptoms. All the review of systems were negative. Past Medical History: Anxiety. Medications: Effexor. Past Surgical History: Lap angus and D and C. Allergies: NO KNOWN DRUG ALLERGIES. Family History: No family history of breast, ovarian, colon, or uterine cancer. Physical Examination: Vital Signs: Afebrile. Vital signs are stable. Head and Neck: Exam negative. Neck: No masses or nodes. Lungs: Clear. Heart: Regular in rate and rhythm. No murmurs. Abdomen: Soft, nondistended. Minimally tender in the right upper quadrant, right mid abdominal area. No rebound, no hepatosplenomegaly or hernias. Pelvic: Done in the OR. Enlarged and deviated to t he right. Left pelvic mass palpable slightly above the uterus and to the left side. Extremities: No edema or calf tenderness. Assessment And Plan: Her CAT scan was reviewed. There is a left adnexal 10 cm complex mass, probabl y consistent with a dermoid (teratoma). Transvaginal ultrasound, no good flow was noted on this side and there was possible consideration of torsion, however no clear reading was present on the sidedne ss of this mass. It did appear to be left-sided on review of images, pain on the right side. Unsure if these 2 were connected. However given the fact that this could be a torsion, reviewed with the p atient her options. Imaging sometimes could be tricky and difficult to determine the side of the mas s given the 10 cm large size of the mass itself. Right upper quadrant abdominal pain needs further i nvestigation if not treated by this. This has been going on intermittently for 36 hours. No signs o r symptoms of pelvic inflammatory disease. No risk factor either, status post a laparoscopic cholecy stectomy. All the LFTs were normal and the labs, white count was normal. No history of reflux. We would investigate the right side as well and if there is an appendix that would be removed as well. All these were discussed with the patient. The patient's was on the phone and the father in the room as well. Laparoscopy, pelvic washings, unilateral salpingo-oophorectomy right or left whichever side the mass was seen. I discussed malignancy is low, likely teratoma. So, followup later with intervention versus the procedure now were discussed and the patient wanted to undergo th e procedure, so consented for laparoscopic pelvic washings and unilateral salpingo-oophorectomy or oo phorectomy. Bleeding, infection, injury to the bowel, bladder, ureters were all discussed. The walt ent gave her consent and then we discussed about the referral to Gynecological Oncology if cancer was diagnosed. All Q and A were done. The patient consented as well for operation on the date of service. YESICA/YARELY Voice ID: [id number] Report ID: [id number]
== END 2018-10-08 11:54 | disposition home or self-care (01) ==
LOC: ER 12:50 → ERHOLD 16:48 → UNDOADMIN 16:48 → DS 17:50 → 2ND 20:27 → UNDOADMOB 20:27 → INTOOBSV 20:27 → 2ND 20:28 → UNDODISOB 10-08 11:54 → DS 10-08 11:54
PROVIDERS: ATTEND Obstetrics & Gynecology
PROC: 0UT64ZZ Resection of Left Fallopian Tube, Percutaneous Endoscopic Approach (ICD-10-PCS; 2018-10-07)
PROC: 0UT14ZZ Resection of Left Ovary, Percutaneous Endoscopic Approach (ICD-10-PCS; principal; 2018-10-07 18:30)
DX: D39.12 Neoplasm of uncertain behavior of left ovary (principal); R19.09 Other intra-abdominal and pelvic swelling, mass and lump; N83.8 Other noninflammatory disorders of ovary, fallopian tube and broad ligament; N73.6 Female pelvic peritoneal adhesions (postinfective); E87.6 Hypokalemia; F32.9 Major depressive disorder, single episode, unspecified; F41.9 Anxiety disorder, unspecified; Z90.49 Acquired absence of other specified parts of digestive tract
CPT/HCPCS: 36415; 71045; 74177; 76830; 80048; 80076; 81003; 81025; 83690; 85025; 85610; 85730; 86304; 86850; 86900; 86901; 88108; 88305; 93005; 96365; 96375; 99285; G0378; J1100; J2405; J2704; J2710; J3010; Q9967

== ENCOUNTER 2019-05-07 02:19 | Emergency (ER) | payer SELFPAY ==
[2019-05-07] MEDS ORDERED: levoFLOXacin 750 MG TAB ONE (03:30)
[2019-05-07] MEDS ORDERED: NEOMY/POLY/HC 1% OTIC DROPS ONE (03:30)
[2019-05-07] MEDS ORDERED: IBUPROFEN 400 MG TAB ONE (03:31)
[2019-05-07] MEDS ORDERED: SMZ./TMP. 800/160 MG TABLET ONE (03:31)
--- NOTE | 2019-05-07 03:32 | ER ---
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 pt seen at 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 pt unable to follow up with ENT due to financial issues and lack of insurance. pt c/o pain, swelling and drainage to right ear. Transition of care: patient was not received from another setting of care. Onset of symptoms is unknown. Risk Assessment: Do you want to hurt yourself or someone else? Patient reports no desire to harm self or others. Initial Sepsis Screen: Does the patient meet any 2 criteria? No. Patient's initial sepsis screen is negative. Does the patient have a suspected source of infection? No. Patient's initial sepsis screen is negative. Care prior to arrival: None. 02:34 Acuity: ANDERS 4 ak1 02:34 Method Of Arrival: Ambulatory ak1 Triage Assessment: 02:31 General: Appears in no apparent distress. Behavior is calm, cooperative. Pain: ak1 Complains of pain in right ear. 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 - Social history:: Smoking status: Patient/guardian denies using tobacco. - Ebola Screening: : No symptoms or risks identified at this time. - Family history:: not pertinent. Screenin:35 Abuse screen: Denies threats or abuse. Denies injuries from another. Nutritional ak1 screening: No deficits noted. Tuberculosis screening: No symptoms or risk factors identified. Fall Risk None identified. Assessment: 02:39 General: Appears in no apparent distress. uncomfortable, Behavior is calm, cooperative, cc3 appropriate for age. Pain: Complains of pain in right ear. Neuro: Level of Consciousness is awake, alert, obeys commands, Oriented to person, place, time, situation, Appropriate for age. Cardiovascular: Denies chest pain, Heart tones S1 S2 present Capillary refill < 3 seconds in bilateral fingers Patient's skin is warm and dry. Respiratory: Airway is patent Respiratory effort is even, unlabored, Respiratory pattern is regular, symmetrical, Breath sounds are clear bilaterally. GI: Abdomen is round non-distended, Bowel sounds present X 4 quads. Abd is soft and non tender X 4 quads. : No signs and/or symptoms were reported regarding the genitourinary system. EENT: Ear canal swollen on the right ear. Derm: Skin is intact, is healthy with good turgor, Skin is pink, warm \T\ dry. normal. Musculoskeletal: Circulation, motion, and sensation intact. Range of motion: intact in all extremities. 03:55 Reassessment: Patient appears in no apparent distress at this time. Patient and/or cc3 family updated on plan of care and expected duration. Pain level reassessed. Patient is alert, oriented x 3, equal unlabored respirations, skin warm/dry/pink. Dr. Martinez put an ear wick on the patient's right ear then discharged the patient home with prescriptions given. No IV cannula in situ. Patient left ER vitally stable and ambulatory. No valuables left in the patient's room. Patient states feeling better. Vital Signs: 02:29 BP 143 / 80; Pulse 71; Resp 16; Temp 98.1; Pulse Ox 98% on R/A; Weight 86.18 kg (R); ak1 Height 5 ft. 3 in. (160.02 cm) (R); Pain 6/10; 03:40 BP 136 / 77; Pulse 75; Resp 15 S; Pulse Ox 99% on R/A; Pain 4/10; cc3 02:29 Body Mass Index 33.66 (86.18 kg, 160.02 cm) ak1 ED Course: 02:21 Patient arrived in ED. cl3 02:25 Farrukh Martinez MD is Attending Physician. ros 02:31 Arm band placed on Patient placed in an exam room, on a stretcher, on pulse oximetry, ak1 Patient notified of wait time. 02:35 Triage completed. ak1 02:35 Patient has correct armband on for positive identification. Bed in low position. Call ak1 light in reach. Side rails up X 1. Pulse ox on. NIBP on. 02:39 Tiffany Cedeño is Primary Nurse. cc3 03:31 Chelsy Mays MD is Referral Physician. ros 03:55 No provider procedures requiring assistance completed. Patient did not have IV access cc3 during this emergency room visit. Administered Medications: 03:30 CANCELLED (Duplicate Order): CIPRODEX 4 drops Otic in right ear once ros 03:30 Drug: LevOfloxacin 750 mg Route: PO; cc3 03:55 Follow up: Response: No adverse reaction cc3 03:30 Drug: Bactrim 160 mg-800 mg (DS) 160 mg Route: PO; cc3 03:56 Follow up: Response: No adverse reaction cc3 03:30 Drug: Motrin 800 mg Route: PO; cc3 03:55 Follow up: Response: No adverse reaction cc3 03:35 Drug: Cortisporin Drops 4 drops Route: Otic; Site: right ear; cc3 03:54 Follow up: Response: No adverse reaction cc3 03:45 Drug: Rocephin (cefTRIAXone) 1 grams Route: IM; Site: right gluteus; cc3 03:54 Follow up: Response: No adverse reaction cc3 Outcome: 03:32 Discharge ordered by . ros 03:55 Discharged to home ambulatory. cc3 03:55 Condition: stable 03:55 Discharge instructions given to patient, Instructed on discharge instructions, follow up and referral plans. medication usage, Demonstrated understanding of instructions, follow-up care, medications, Prescriptions given X 4. 03:57 Patient left the ED. cc3 Signatures: Farrukh Martinez MD MD cha Krenek, Amber, RN RN ak1 Tiffany Cedeño cc3 Bradley Sheffield cl3
--- NOTE | 2019-05-07 03:33 | EDPHYS ---
Physician Documentation [facility] Name: Irene Church Age: 44 yrs Sex: Female : 1975 Arrival Date: 05/07/2019 Time: 02:21 Bed 14 Private MD: FRANK Physician Farrukh Martinez HPI: 05/07 03:24 This 44 yrs old Female presents to ER via Ambulatory with complaints of Ear ros Pain. 03:24 The patient presents with pain, swelling, tenderness. The complaints affect the right ros ear. Onset: The symptoms/episode began/occurred 3 day(s) ago. Modifying factors: The symptoms are alleviated by covering ear, the symptoms are aggravated by pulling on ears, touching. Associated signs and symptoms: The patient has no apparent associated signs or symptoms. Severity of symptoms: At their worst the symptoms were mild in the emergency department the symptoms are unchanged. The patient has not experienced similar symptoms in the past. 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 - Social history:: Smoking status: Patient/guardian denies using tobacco. - Ebola Screening: : No symptoms or risks identified at this time. - Family history:: not pertinent. ROS: 03:24 Constitutional: Negative for fever, chills, and weight loss, Eyes: Negative for injury, ros pain, redness, and discharge, Neck: Negative for injury, pain, and swelling, Cardiovascular: Negative for chest pain, palpitations, and edema, Respiratory: Negative for shortness of breath, cough, wheezing, and pleuritic chest pain, Abdomen/GI: Negative for abdominal pain, nausea, vomiting, diarrhea, and constipation, Back: Negative for injury and pain, : Negative for injury, bleeding, discharge, and swelling, MS/Extremity: Negative for injury and deformity, Skin: Negative for injury, rash, and discoloration, Neuro: Negative for headache, weakness, numbness, tingling, and seizure, Psych: Negative for depression, anxiety, suicide ideation, homicidal ideation, and hallucinations, Allergy/Immunology: Negative for hives, rash, and allergies, Endocrine: Negative for neck swelling, polydipsia, polyuria, polyphagia, and marked weight changes, Hematologic/Lymphatic: Negative for swollen nodes, abnormal bleeding, and unusual bruising. 03:24 ENT: Positive for drainage from ear(s), ear pain, pulling at ears. Exam: 03:24 Constitutional: This is a well developed, well nourished patient who is awake, alert, ros and in no acute distress. Head/Face: Normocephalic, atraumatic. Eyes: Pupils equal round and reactive to light, extra-ocular motions intact. Lids and lashes normal. Conjunctiva and sclera are non-icteric and not injected. Cornea within normal limits. Periorbital areas with no swelling, redness, or edema. Neck: Trachea midline, no thyromegaly or masses palpated, and no cervical lymphadenopathy. Supple, full range of motion without nuchal rigidity, or vertebral point tenderness. No Meningismus. Chest/axilla: Normal chest wall appearance and motion. Nontender with no deformity. No lesions are appreciated. Cardiovascular: Regular rate and rhythm with a normal S1 and S2. No gallops, murmurs, or rubs. Normal PMI, no JVD. No pulse deficits. Respiratory: Lungs have equal breath sounds bilaterally, clear to auscultation and percussion. No rales, rhonchi or wheezes noted. No increased work of breathing, no retractions or nasal flaring. Abdomen/GI: Soft, non-tender, with normal bowel sounds. No distension or tympany. No guarding or rebound. No evidence of tenderness throughout. Back: No spinal tenderness. No costovertebral tenderness. Full range of motion. Skin: Warm, dry with normal turgor. Normal color with no rashes, no lesions, and no evidence of cellulitis. MS/ Extremity: Pulses equal, no cyanosis. Neurovascular intact. Full, normal range of motion. Neuro: Awake and alert, GCS 15, oriented to person, place, time, and situation. Cranial nerves II-XII grossly intact. Motor strength 5/5 in all extremities. Sensory grossly intact. Cerebellar exam normal. Normal gait. Psych: Awake, alert, with orientation to person, place and time. Behavior, mood, and affect are within normal limits. 03:24 ENT: Ear canal(s): cerumen impaction, erythema, Examination of the other ear shows no obvious abnormality. Vital Signs: 02:29 BP 143 / 80; Pulse 71; Resp 16; Temp 98.1; Pulse Ox 98% on R/A; Weight 86.18 kg (R); ak1 Height 5 ft. 3 in. (160.02 cm) (R); Pain 6/10; 03:40 BP 136 / 77; Pulse 75; Resp 15 S; Pulse Ox 99% on R/A; Pain 4/10; cc3 02:29 Body Mass Index 33.66 (86.18 kg, 160.02 cm) ak1 Procedures: 03:35 Performed ear wick insertion, with alligators, Cortisporin 4 drop placed. ros MDM: 02:25 Patient medically screened. [facility] 03:38 Data reviewed: vital signs, nurses notes, lab test result(s). ros Administered Medications: 03:30 CANCELLED (Duplicate Order): CIPRODEX 4 drops Otic in right ear once ros 03:30 Drug: LevOfloxacin 750 mg Route: PO; cc3 03:55 Follow up: Response: No adverse reaction cc3 03:30 Drug: Bactrim 160 mg-800 mg (DS) 160 mg Route: PO; cc3 03:56 Follow up: Response: No adverse reaction cc3 03:30 Drug: Motrin 800 mg Route: PO; cc3 03:55 Follow up: Response: No adverse reaction cc3 03:35 Drug: Cortisporin Drops 4 drops Route: Otic; Site: right ear; cc3 03:54 Follow up: Response: No adverse reaction cc3 03:45 Drug: Rocephin (cefTRIAXone) 1 grams Route: IM; Site: right gluteus; cc3 03:54 Follow up: Response: No adverse reaction 3 Disposition: 05/07/19 03:32 Discharged to Home. Impression: Otitis externa in other diseases classified elsewhere, right ear. - Condition is Stable. - Discharge Instructions: Ear Drops, Adult, Otitis Externa, Otitis Externa, [id number], Ear Drops, Adult, [id number]. - Prescriptions for Levaquin 750 mg Oral Tablet - take 1 tablet by ORAL route once daily for 8-10 days; 9 tablet. Tylenol- Codeine #3 300-30 mg Oral Tablet - take 2 tablets by ORAL route every 6 hours As needed; 26 tablet. Bactrim DS 800- 160 mg Oral Tablet - take 1 tablet by ORAL route every 12 hours for 10 days; 20 tablet. Ciprodex 0.3- 0.1 % Otic Drops, Suspension - instill 4 drop by OTIC route every 12 hours for 7 days , for ears ONLY; 1 Container. - Medication Reconciliation Form, Thank You Letter, Antibiotic Education, Prescription Opioid Use form. - Follow up: Private Physician; When: 2 - 3 days; Reason: Recheck today's complaints, Continuance of care, Re-evaluation by your physician. Follow up: Chelsy Mays MD; When: 2 - 3 days; Reason: Recheck today's complaints, Re-evaluation by your physician. - Problem is new. - Symptoms have improved. Signatures: Farrukh Martinez MD MD cha Krenek, Amber RN RN ak1 Tiffany Cedeño cc3 Corrections: (The following items were deleted from the chart) 03:30 03:24 CIPRODEX Drops 4 drops Otic in right ear once ordered. [facility] 03:53 03:24 Urine Test ordered. [place] [id number] 03:54 03:24 Urine Dipstick-Ancillary ordered. [place] [id number] 03:57 03:32 05/07/2019 03:32 Discharged to Home. Impression: Otitis externa in other diseases cc3 classified elsewhere, right ear. Condition is Stable. Forms are Medication Reconciliation Form, Thank You Letter, Antibiotic Education, Prescription Opioid Use. Follow up: Private Physician; When: 2 - 3 days; Reason: Recheck today's complaints, Continuance of care, Re-evaluation by your physician. Follow up: Chelsy Mays; When: 2 - 3 days; Reason: Recheck today's complaints, Re-evaluation by your physician. Problem is new. Symptoms have improved. [facility]
[2019-05-07] MEDS ORDERED: CEFTRIAXONE 1000 MG/VIAL ONE (03:42)
[2019-05-07] MEDS ORDERED: WATER FOR INJ,STERILE 10 ML ONE (03:42)
[2019-05-07 04:09] VITALS: BP 143/80; TEMP 98.1; O2SAT 98
== END 2019-05-07 03:57 | disposition home or self-care (01) ==
LOC: ER 02:19
DX: H60.91 Unspecified otitis externa, right ear (principal); F41.9 Anxiety disorder, unspecified; F32.9 Major depressive disorder, single episode, unspecified
CPT/HCPCS: 96372; 99283

== ENCOUNTER 2019-05-07 16:07 | Emergency (ER) | payer SELFPAY ==
[2019-05-07 17:05] LABS: Absolute Lymphocytes (CBC) 1.5 K/uL (0.7-4.9); Basophils % 0.5 % (0-1.3); Hematocrit 39.8 % (36.0-45.0); Lymphocytes % 13.1 % (15.3-44.8); MPV 9.3 fL (7.6-11.3); RBC Red Blood Cell Count 4.49 M/uL (3.86-4.86)
[2019-05-07 17:13] LABS: Potassium 3.4 mmol/L (3.5-5.1)
--- NOTE | 2019-05-07 17:33 | RAD REPORT ---
EXAM DESCRIPTION: CT - Head Brain Wo Cont - 05/07/2019 5:09 pm CLINICAL HISTORY: Headache/right ear pain COMPARISON: None. TECHNIQUE: Computed axial tomography of the head was obtained. IV contrast was not requested. All CT scans are performed using dose optimization technique as appropriate and may include automated exposure control or mA/KV adjustment according to patient size. FINDINGS: An intracranial bleed is not seen . The ventricles are normal in caliber. No extra-axial fluid collection is noted. Opacification of the right mastoids. Marked thickened soft tissue surrounding the right external zuleika tory canal IMPRESSION: No acute intracranial abnormality is seen. If patient's symptoms persist MRI of the bra in would be recommended. Thickened soft tissue surrounding the right external auditory canal can be seen with malignant armature repairer al otitis Opacification the right mastoids may indicate mastitis
[2019-05-07] MEDS ORDERED: ONDANSETRON 4 MG/2 ML VIAL ONE (17:42)
[2019-05-07] MEDS ORDERED: KETOROLAC 30 MG/ML INJ ONE (18:25)
--- NOTE | 2019-05-07 18:32 | EDPHYS ---
Physician Documentation [facility] Name: Irene Church Age: 44 yrs Sex: Female : 1975 Arrival Date: 05/07/2019 Time: 16:08 Bed 13 Private MD: ED Physician Vito Sellers HPI: 05/07 16:36 This 44 yrs old Female presents to ER via Ambulatory with complaints of Fever, jr8 Facial Swelling. 16:36 The patient reports fever, that was measured at 100.2 degrees Fahrenheit. Onset: The jr8 symptoms/episode began/occurred this morning. Associated signs and symptoms: Pertinent positives: earache. Severity of symptoms: At their worst the symptoms were moderate in the emergency department the symptoms are unchanged. Pt was treated here in the ED early this morning for ear infection with IM rocephin, given dose of bactrim and levaquin, sent home with levaquin and bactrim, took a dose of each at 1300. Returns to ED with measured fever at home for which she took 1g tylenol. Reports increased swelling to right side of face. Historical: - Allergies: 16:18 No Known Allergies; hb - Home Meds: 16:22 Effexor XR 150 mg Oral cp24 1 cap once daily [Active]; rb1 - PMHx: 16:22 Anxiety; Depression; RLS; rb1 - PSHx: 16:22 Cholecystectomy; EGD; left ovary removed; rb1 - Immunization history:: Adult Immunizations up to date. - Social history:: Smoking status: Patient/guardian denies using tobacco. - Ebola Screening: : Patient negative for fever greater than or equal to 101.5 degrees Fahrenheit, and additional compatible Ebola Virus Disease symptoms. ROS: 16:38 Constitutional: + fever Eyes: Negative for injury, pain, redness, and discharge. jr8 16:38 MS/Extremity: Negative for injury and deformity. 16:38 ENT: Positive for drainage from ear(s), ear pain. 16:38 Neck: Positive for swollen nodes. 16:38 Cardiovascular: Negative for chest pain, edema, orthopnea, palpitations, acute changes. 16:38 Respiratory: Negative for cough, dyspnea on exertion, hemoptysis, orthopnea, pleurisy, shortness of breath, sputum production. 16:38 Abdomen/GI: Negative for abdominal pain, nausea and vomiting, constipation. 16:38 Back: Negative for injury or acute deformity. 16:38 Skin: Positive for rash, of the face and neck. Exam: 16:38 Constitutional: This is a well developed, well nourished patient who is awake, alert, jr8 and in no acute distress. 16:38 Chest/axilla: Normal chest wall appearance and motion. Nontender with no deformity. No lesions are appreciated. Cardiovascular: Regular rate and rhythm with a normal S1 and S2. No gallops, murmurs, or rubs. Normal PMI, no JVD. No pulse deficits. Respiratory: Lungs have equal breath sounds bilaterally, clear to auscultation and percussion. No rales, rhonchi or wheezes noted. No increased work of breathing, no retractions or nasal flaring. Back: No spinal tenderness. No costovertebral tenderness. Full range of motion. MS/ Extremity: Pulses equal, no cyanosis. Neurovascular intact. Full, normal range of motion. Neuro: Awake and alert, GCS 15, oriented to person, place, time, and situation. Cranial nerves II-XII grossly intact. Motor strength 5/5 in all extremities. Sensory grossly intact. Cerebellar exam normal. Normal gait. 16:38 Head/face: Noted is erythema, that is mild, of the right ear and right jaw, swelling, that is mild, of the right ear and right jaw. 16:38 Eyes: Exam is negative for acute changes, nystagmus, Periorbital structures: no acute changes, no abrasion, no cellulitis, no contusion, no ecchymosis, no erythema, no swelling. 16:38 ENT: External ear(s): erythema, swelling, that is moderate, of the pinna of right ear, right ear lobe, right ear canal, right preauricular area and right mastoid area, ear wick present to right eat canal, left canal clear, TM pearly andujar with intact bony landmarks as well as + light reflex, Mouth: is normal, no abscess, no lesion(s), no gum abnomalities, no lip abnormalities, no mucosal abnormalities. 16:38 Neck: Lymph nodes: lymphadenopathy is appreciated, anterior cervical nodes, preauricular nodes. 16:38 Skin: on the red, patchy rash to right face and anterior neck. Vital Signs: 16:17 BP 171 / 112; Pulse 104; Resp 16; Temp 98.7; Pulse Ox 100% on R/A; Weight 86.18 kg; hb Height 5 ft. 3 in. (160.02 cm); Pain 5/10; 16:29 Temp 99.0(O); rb1 17:00 BP 140 / 90; Pulse 110; Resp 17; Pulse Ox 100% ; rb1 18:00 BP 153 / 92; Pulse 101; Resp 16; Pulse Ox 100% on R/A; Pain 4/10; rb1 16:17 Body Mass Index 33.66 (86.18 kg, 160.02 cm) hb MDM: 16:34 Patient medically screened. jr8 18:27 Data reviewed: vital signs, nurses notes, lab test result(s), radiologic studies, and jr8 as a result, I will discharge patient. Data interpreted: Pulse oximetry: on room air is 100 %. Interpretation: normal. Counseling: I had a detailed discussion with the patient and/or guardian regarding: the historical points, exam findings, and any diagnostic results supporting the discharge/admit diagnosis, lab results, radiology results, the need for outpatient follow up, an ENT specialist. Response to treatment: the patient's symptoms have mildly improved after treatment. ED course: Consulted with Dr. Mays who wanted to add an ESR which was WNL. Pt appears non-toxic and is otherwise well, Concern for malignant otitis externa/mastoiditis. Dr. Mays is amendable to seeing patient in office for outpatient treatment as long as patient is still well and tolerating her previously prescribed antibiotics. Pt amendable to plan and states she will call Dr. Mays in the morning. Return precautions given, pt tolerating PO in the ED, given dose of rocephin and pain meds. . 05/07 16:36 Order name: CBC with Diff; Complete Time: 17:19 jr8 05/07 16:36 Order name: BMP; Complete Time: 17:19 jr8 05/07 16:36 Order name: Head Brain Wo Cont CT; Complete Time: 17:48 jr8 05/07 17:53 Order name: ESR; Complete Time: 18:19 jr8 Administered Medications: 17:42 Drug: Zofran 4 mg Route: IVP; Site: right antecubital; rb1 18:00 Follow up: Response: No adverse reaction; Nausea is decreased rb1 18:25 Drug: TORadol - Ketorolac 15 mg Route: IVP; Site: right antecubital; rb1 18:35 Drug: Rocephin 2 grams Route: IV; Rate: calculated rate; Site: right antecubital; rb1 Disposition: 05/07/19 18:31 Discharged to Home. Impression: Acute contact otitis externa, right ear. - Condition is Stable. - Discharge Instructions: Otitis Externa, Otitis Externa, [id number]. - Medication Reconciliation Form, Thank You Letter, Antibiotic Education, School release form, Work release form form. - Follow up: Chelsy Mays MD; When: 1 - 2 days; Reason: Recheck today's complaints, Re-evaluation by your physician. - Problem is an ongoing problem. - Symptoms have improved. - Notes: Continue previously prescribed antibiotics and call Dr. Mays's office tomorrow morning, motrin and tylenol at home for pain and fever. Return to ED with significant worsening of symptoms. Signatures: Dispatcher [employer] EDMS Wilner Leon PA PA Jadon Chance PA PA jr8 Katelynn Johnson RN RN rb1 Nicolle Marrufo RN RN Corrections: (The following items were deleted from the chart) 19:01 18:31 05/07/2019 18:31 Discharged to Home. Impression: Acute contact otitis externa, rb1 right ear. Condition is Stable. Forms are Medication Reconciliation Form, Thank You Letter, Antibiotic Education, Prescription Opioid Use. Follow up: Chelsy Mays; When: 1 - 2 days; Reason: Recheck today's complaints, Re-evaluation by your physician. Problem is an ongoing problem. Symptoms have improved. jr8
--- NOTE | 2019-05-07 18:32 | ER ---
Nurse's Notes [facility] Name: Irene Church Age: 44 yrs Sex: Female : 1975 Arrival Date: 05/07/2019 Time: 16:08 Bed 13 Private MD: Diagnosis: Acute contact otitis externa, right ear Presentation: 05/07 16:16 Presenting complaint: Seen in ED this morning for right ear pain and facial swelling, hb reports increasing pain and swelling to right ear and face. Transition of care: patient was not received from another setting of care. Onset of symptoms was May 07, 2019. Risk Assessment: Do you want to hurt yourself or someone else? Patient reports no desire to harm self or others. Initial Sepsis Screen: Does the patient meet any 2 criteria? No. Patient's initial sepsis screen is negative. Does the patient have a suspected source of infection? No. Patient's initial sepsis screen is negative. Care prior to arrival: None. 16:16 Method Of Arrival: Ambulatory 16:16 Acuity: ANDERS 3 hb Historical: - Allergies: 16:18 No Known Allergies; hb - Home Meds: 16:22 Effexor XR 150 mg Oral cp24 1 cap once daily [Active]; rb1 - PMHx: 16:22 Anxiety; Depression; RLS; rb1 - PSHx: 16:22 Cholecystectomy; EGD; left ovary removed; rb1 - Immunization history:: Adult Immunizations up to date. - Social history:: Smoking status: Patient/guardian denies using tobacco. - Ebola Screening: : Patient negative for fever greater than or equal to 101.5 degrees Fahrenheit, and additional compatible Ebola Virus Disease symptoms. Screenin:22 Abuse screen: Denies threats or abuse. Nutritional screening: No deficits noted. rb1 Tuberculosis screening: No symptoms or risk factors identified. Fall Risk None identified. Assessment: 16:22 General: Appears uncomfortable, Behavior is calm, cooperative, Reports fever for. Pain: rb1 Denies pain. Neuro: Level of Consciousness is awake, alert, obeys commands, Oriented to person, place, time, situation. Cardiovascular: Capillary refill < 3 seconds is brisk in bilateral fingers. Respiratory: Airway is patent Respiratory effort is even, unlabored, Respiratory pattern is regular, symmetrical. GI: Reports nausea. : No signs and/or symptoms were reported regarding the genitourinary system. EENT: Ear canal Wick is in the pt. right ear from previous visit. Derm: Skin is red, Pt. face is flushed but pt. reports that it happens randomly for different reasons. Musculoskeletal: Range of motion: intact in all extremities. 17:21 Reassessment: Patient appears in no apparent distress at this time. No changes from rb1 previously documented assessment. Family at bedside. 18:20 Reassessment: Patient appears in no apparent distress at this time. Patient and/or rb1 family updated on plan of care and expected duration. Pain level reassessed. Patient is alert, oriented x 3, equal unlabored respirations, skin warm/dry/pink. Parents at bedside. Vital Signs: 16:17 BP 171 / 112; Pulse 104; Resp 16; Temp 98.7; Pulse Ox 100% on R/A; Weight 86.18 kg; hb Height 5 ft. 3 in. (160.02 cm); Pain 5/10; 16:29 Temp 99.0(O); rb1 17:00 BP 140 / 90; Pulse 110; Resp 17; Pulse Ox 100% ; rb1 18:00 BP 153 / 92; Pulse 101; Resp 16; Pulse Ox 100% on R/A; Pain 4/10; rb1 16:17 Body Mass Index 33.66 (86.18 kg, 160.02 cm) hb ED Course: 16:08 Patient arrived in ED. as 16:10 Jadon Roca PA is PHCP. jr8 16:10 Vito Sellers MD is Attending Physician. jr8 16:17 Triage completed. hb 16:18 Arm band placed on. hb 16:22 Patient has correct armband on for positive identification. Bed in low position. Call rb1 light in reach. Side rails up X 1. Pulse ox on. NIBP on. 16:22 Inserted saline lock: 22 gauge in right antecubital area, using aseptic technique. rb1 Blood collected. 16:31 Katelynn Johnson, RN is Primary Nurse. rb1 17:08 CT completed. Patient tolerated procedure well. Patient moved back from CT. bq 17:09 Head Brain Wo Cont CT In Process Unspecified. EDMS 18:31 Chelsy Mays MD is Referral Physician. jr8 19:00 No provider procedures requiring assistance completed. IV discontinued, intact, rb1 bleeding controlled, No redness/swelling at site. Pressure dressing applied. Administered Medications: 17:42 Drug: Zofran 4 mg Route: IVP; Site: right antecubital; rb1 18:00 Follow up: Response: No adverse reaction; Nausea is decreased rb1 18:25 Drug: TORadol - Ketorolac 15 mg Route: IVP; Site: right antecubital; rb1 18:35 Drug: Rocephin 2 grams Route: IV; Rate: calculated rate; Site: right antecubital; rb1 Outcome: 18:31 Discharge ordered by MD. jr8 19:00 Discharged to home ambulatory, with family. rb1 19:00 Condition: stable 19:00 Discharge instructions given to patient, Instructed on discharge instructions, follow up and referral plans. Demonstrated understanding of instructions, follow-up care, Prescriptions given X none 19:01 Patient left the ED. rb1 Signatures: Dispatcher [employer] EDMS Una Mon Amelia as Roszak, Josh, PA PA jr8 Katelynn Johnson, RN RN rb1 Nicolle Marrufo RN RN hb Corrections: (The following items were deleted from the chart) 16:18 16:16 Presenting complaint: Seen in ED this morning for right ear pain, report hb increasing pain and swelling to right ear and face hb 16:18 16:16 Acuity: ANDERS 4 hb hb
[2019-05-07] MEDS ORDERED: CEFTRIAXONE/SWI 2gm 2 GM/20 ML SYR IV ONE (19:00)
[2019-05-07 19:09] VITALS: O2SAT 100
[2019-05-07 19:16] VITALS: TEMP 99
[2019-05-07 19:18] VITALS: BP 153/92
== END 2019-05-07 19:01 | disposition home or self-care (01) ==
LOC: ER 16:07
DX: H60.531 Acute contact otitis externa, right ear (principal); F41.9 Anxiety disorder, unspecified; F32.9 Major depressive disorder, single episode, unspecified
CPT/HCPCS: 36415; 70450; 80048; 85025; 85652; 96374; 96375; 99284; J0696; J2405

== ENCOUNTER 2022-01-12 07:19 | Emergency (ER) | payer BC ==
--- OUTSIDE RECORDS SUMMARY | 2022-01-12 07:21 | XMS REPORT | Continuity of Care Document ---
:1975 Author Organization [facility] t Address [address] [place] [address] Care Team Providers Name Role Phone Esdras Langley Attending Clinician Unavailable Faculty, Rmchbrody Mfm Attending Clinician Unavailable Doctor Unassigned, Name Attending Clinician Unavailable Loyd GRAF, M Attending Clinician Dinora WHITFIELDP, F Attending Clinician Esdras Langley Admitting Clinician Unavailable Physician, Primary or Family Admitting Clinician Unavailabl e Payers Payer Name Policy Type Policy Number Effective Date Expiration Date S ource Problems Condition Condition Condition Status Onset Resolution Last Treating Co mments Source Name Details Category Date Date Treatment Clinician Date Elevated Elevated Disease Active Unive rs blood blood 1-09 ity of pressure pressure 00:00: [place] reading reading 00 Medical without without Branch diagnosis diagnosis of of hypertensi hypertensi on on Need for Need for Disease Active Unive rs rubella rubella 1-09 ity of vaccin[place] vaccin[place] 00 Medical Branch Down Down Disease Active 2018-07 Univers syndrome, syndrome, 2-18 ity of child of child of 00:00: [place] prior prior 00 Medical , , Br anch currently currently AMA AMA Disease Active 2018-07 Univers (advanced (advanced 2-18 ity of maternal maternal 00:00: [place] age) age) 00 Medical multigravi multigravi Br anch da 35+, da 35+, first first trimester trimester BMI BMI Disease Active 2018-07 Univers 36.0-36.9, 36.0-36.9, 2-18 it y of adult adult 00:00: [place] 00 Medical Branch Obesity in Obesity in Disease Active U mario alberto , , 09-18 it y of antepartum antepartum 00:00: [place] Medical Branch GERD GERD Disease Active Univers (gastroeso (gastroeso 09-17 it y of phageal phageal 00:00: [place] reflux reflux 00 Medical disease) disease) Branch Anxiety Anxiety Disease Active Univers 09-17 ity of 00:00: [place] 00 Medical Branch Constipati Constipati Disease Active U mario alberto on on 09-17 ity of 00:00: [place] 00 Medical Branch Depression Depression Disease Active U nivers 09-17 ity of 00:00: [place] 00 Medical Branch Vitamin D Vitamin D Disease Active Overview: Univers deficiency deficiency 09-17 ICD10 it y of 00:00: Diagnosis 00 Term 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 Insomnia Insomnia Disease Active Unive rs 3 ity of 00:00: [place] 00 Medical Branch Allergies, Adverse Reactions, Alerts Allergy Allergy Status Severity Reaction(s) Onset Inactive Treating Comm ents Source Name Type Date Date Clinician No Known DA Active U 0 [facility] 00 [place] [facility] No Known DA Active U 2019-0 [facility] Allergie 02-21 [facility] 00 [facility] Social History Social Habit Start Date Stop Date Quantity Comments Source ASSERTION 2019-06-15 [facility] 00:00:00 Medical Branch Sex Assigned At [facility] Medical Branch Alcohol intake 2019-07-31 2019-07-31 [facility] 00:00:00 00:00:00 Medical Branch Smoking Status Start Date Stop Date Source Never smoker [facility] Medications Ordered Filled Start Stop Current Ordering Indication Dosage Frequency Signature Comments Components Source Medication Medication Date Date Medication? Clinician (SIG) Name Name aspirin 81 2020-0 Yes [id number] 81mg Take 1 Univers mg EC 1-13 tablet by ity of tablet 00:00: mouth [place] 00 daily. Medical Branch Blood Yes [id number] Use as Unive rs Pressure 1-13 directed ity of Monitor Kit 00:00: [place] 00 Medical Branch aspirin 81 2020-0 Yes [id number] 81mg Take 1 Univers mg EC 1-13 tablet by ity of tablet 00:00: mouth [place] 00 daily. Medical Branch Blood 2020-0 Yes [id number] Use as Unive rs Pressure 1-13 directed ity of Monitor Kit 00:00: [place] 00 Medical Branch aspirin 81 2020-0 Yes [id number] 81mg Take 1 Univers mg EC 1-13 tablet by ity of tablet 00:00: mouth [place] 00 daily. Medical Branch Blood 2020-0 Yes [id number] Use as Unive rs Pressure 1-13 directed ity of Monitor Kit 00:00: [place] 00 Medical Branch ibuprofen 2019- No 800mg 800 mg, Uni vers (IBU) 03-23- Oral, ity of tablet 800 21:30: 20:23 ONCE, 1 Minesh as mg 00 :00 dose, [facility] Medical 03/23/19 at Branch 1630, DELFINA ofloxacin Yes [id number] 5[drp] Place 5 Univers 0.3 % otic 03-23 Drops in ity o f drops 00:00: left ear 2 [place] 00 (two) Medical times Branch daily. amoxicillin 2019- No [id number] 1{tbl} Take 1 Univers -clavulanat 03-23 tablet by it y of e 00:00: 04:59 mouth 2 [place] (AUGMENTIN) 00 :00 (two) Medical 875-125 mg times Branch per tablet daily for 10 days. acetaminoph Yes 500mg Take 500 U nivers en (TYLENOL 3-03 mg by ity of EXTRA 19:52: mouth [place] STRENGTH) 28 every 6 Medical 500 mg (six) Branch tablet hours as needed for Pain. venlafaxine Yes [id number] 150mg Take 1 Cap Univers XR (EFFEXOR 3-03 by mouth ity of XR) 150 mg 00:00: daily with [place] 24 [place] 00 breakfast. Medical capsule Branch venlafaxine Yes [id number] 150mg Take 1 Cap Univers XR (EFFEXOR 3-03 by mouth ity of XR) 150 mg 00:00: daily with [place] 24 [place] 00 breakfast. Medical capsule Branch venlafaxine Yes [id number] 150mg Take 1 Cap Univers XR (EFFEXOR 3-03 by mouth ity of XR) 150 mg 00:00: daily with [place] 24 [place] 00 breakfast. Medical capsule Branch venlafaxine 0 Yes [id number] 150mg Take 1 Cap Univers XR (EFFEXOR 3-03 by mouth ity of XR) 150 mg 00:00: daily with [place] 24 [place] 00 breakfast. Medical capsule Branch Immunizations Ordered Filled Immunization Date Status Comments Sour e Immunization Name Name Influenza Virus 2019-07-31 Completed Universit y of Vaccine Quad .5 mL 00:00:00 [place] Medical IM 6+ MO Branch Influenza Virus 2019-07-31 Completed Universit y of Vaccine Quad .5 mL 00:00:00 [place] Medical IM 6+ MO Branch Influenza Virus 2019-07-31 Completed Universit y of Vaccine Quad .5 mL 00:00:00 [facility] IM 6+ MO Branch Vital Signs Vital Name Observation Time Observation Value Comments Source Systolic blood 2019-07-31 14:30:00 149 mm[Hg] Univer sity of pressure [facility] Diastolic blood 2019-07-31 14:30:00 92 mm[Hg] Unive rsity of pressure [facility] Heart rate 2019-07-31 14:30:00 91 /[facility] Body temperature 2019-07-31 14:30:[address] [facility] [place] [facility] Respiratory rate 2019-07-31 14:30:00 16 /min [facility] Body height 2019-07-31 14:30:00 160 cm [facility] Body weight 2019-07-31 14:30:00 93.554 kg [facility] BMI 2019-07-31 14:30:00 36.54 kg/m2 [facility] Systolic blood 2019-07-31 14:30:00 149 mm[Hg] Univer sity of pressure [facility] Diastolic blood 2019-07-31 14:30:00 92 mm[Hg] Unive rsity of pressure [facility] Heart rate 2019-07-31 14:30:00 91 /min [facility] 2019-07-31 14:30:[address] [facility] [place] [facility] Respiratory rate 2019-07-31 14:30:00 16 /min [facility] [place] [facility] Body height 2019-07-31 14:30:00 160 cm Universi ty of [facility] Body weight 2019-07-31 14:30:00 93.554 kg Universi ty [facility] BMI 2019-07-31 14:30:00 36.54 kg/m2 Universi ty [facility] Systolic blood 2019-03-23 19:49:00 152 mm[Hg] Univer sity of pressure [facility] Diastolic blood 2019-03-23 19:49:00 105 mm[facility]Hg[facility] 2019-03-23 19:49:00 89 /min Universi ty [facility] Body temperature 2019-03-23 19:49:[address] [facility] [place] [facility] Respiratory rate 2019-03-23 19:49:00 18 /min [facility] [place] [facility] Body weight 2019-03-23 19:49:00 86.183 kg Universi [facility] BMI 2019-03-23 19:49:00 33.66 kg/m2 [facility] Oxygen saturation in 2019-03-23 19:49:00 100 /min [facility] Arterial blood by [facility] Pulse oximetry Branch Procedures Procedure Date / Time Performed Performing Clinician Naomy del valle [id number] 2020-02-22 00:00:00 [facility] [id number] 2020-02-22 00:00:00 [facility] [id number] 2020-02-22 00:00:00 [facility] ASSIGNMENT OF BENEFITS 2019-08-03 16:49:39 Doctor Unassigned, No [facility] Name [facility] Branch BASIC METABOLIC PANEL 2019-07-31 15:48:00 Krys Harp [facility] (NA, K, CL, CO2, Medical Branch GLUCOSE, BUN, CREATININE, CA) PROTEIN CREAT RATIO 2019-07-31 15:48:00 Krys Harp [facility] URINE RANDOM [facility] Branch FLU VACC ([phone]), 2019-07-31 15:44:26 Krys Harp [facility] 6+ MONTHS, IM, QUAD Medical Bran ch POCT URINALYSIS 2019-07-31 14:52:00 Jessie Worthy [facility] Medical Branch NOTICE OF PRIVACY 2019-03-23 19:34:39 Doctor Unassigned, No Univ [facility] PRACTICES Name Medical Branch Encounters Start End Encounter Admission Attending Care Care Encounter Source Date/Time Date/Time Type Type Clinicians Facility Department ID 2020-02-22 Inpatient EL Maccato, [facility] LD [id number] [facility] 08:30:00 Ember [facility] [place] 2020-02-20 Inpatient [place], [facility] [id number] [facility] 08:30:00 Ember [facility] [place] 2020-02-20 2020-02-20 Outpatient [place], [facility] LABO [id number] [facility] 09:42:00 09:42:00 Ember [facility] 2020-01-30 2020-01-30 Outpatient EL [place]acc[place], [facility] RADI [id number] [facility] 15:10:00 15:10:00 Ember [id number] [facility] [place] 2019-10-09 2019-10-09 Outpatient [place], [facility] RADI [id number] [facility] 09:00:00 09:00:00 Ember [id number] [facility] [place] 2019-08-16 2019-08-16 Telephone Faculty, [facility] [id number] 00:00:00 00:00:00 Ang Rmchp CLINICAL COURIER [id number] [facility] 4.2.7.2.686 MATERNAL [id number] & CHILD 107 [facility] 2019-08-16 2019-08-16 Telephone Faculty, [facility] [id number] [facility] 00:00:00 00:00:00 Ang Rmchp CLINICAL COURIER [id number] ity of [facility] 4.2.7.2.686 [place]h as MATERNAL [phone] Med ical & CHILD 107 [facility] 2019-08-03 2019-08-03 Orders Doctor FOY 1.2.840.114 [id number] Univers 00:00:00 00:00:00 Only Unassigned, LAZARUS [id number] ity of [facility] 4.2.7.2.686 [place] as [id number] [facility] 009 [place] 2019-08-03 2019-08-03 Orders Doctor DANII 1.2.840.114 [id number] 00:00:00 00:00:00 Only Unassigned, LAZARUS 350.1.13.[address] [place] [facility] 4.2.7.2.686 [id number] 2019-07-31 2019-08-01 Routine Faculty, [facility] 1.2 .840.114 [id number] [facility] 08:20:07 09:57:53 Krys Harp CLINICAL COURIER [id number] [facility] 4.2.7.2.686 [place] as MATERNAL [id number] Med ical & CHILD 107 [facility] 2019-07-31 2019-08-01 Routine Faculty, [facility] 1.2.840.114 [id number] 08:20:07 09:57:53 [facility] CLINICAL COURIER [id number] Visit [facility] 4.2.7.2.686 MATERNAL [id number] & CHILD 107 [facility] 2019-03-23 2019-03-23 [facility] 1.2.840.114 [id number] Univers 14:56:12 16:18:00 Debi Ceron [facility] 350.1.13.10 ity of [place] 4.2.7.2.686 [place] [facility] [id number] [address] Results Test Description Test Time Test Comments Results Result Comments Source HGB HCT 2020-02-23 06:45:00 Test Item Value Reference Range Interpretation Comme nts HEMOGLOBIN (test code = HGB) 9.3 g/dL 10.7-13.9 L HEMATOCRIT (test code = HCT) 29.2 % 32.1-42.1 L AG HEPATITIS B [id number] 13:01:00 Test Item Value Reference Range Interpretation Comments AG HEPATITIS B SURFACE (test code NONREACTIVE NONREACTIVE = HBSAG) IS CONSENT FORM SIGNED FOR HIV TESTING? YAB HEPATITIS C [id number] 13:01:00 Test Item Value Reference Range Interpretation Comments AB HEPATITIS C (test code = NONREACTIVE NONREACTIVE HCVAB) SIGNAL TO CUTOFF (test code = 0.20 <0.80 N CUTOFF) IS CONSENT FORM SIGNED FOR HIV TESTING? YAReji [id number] 13:01:00 Test Item Value Reference Range Interpretation Comments AB TREPONEMA (test code = TREPAB) NONREACTIVE NONREACTIVE IS CONSENT FORM SIGNED FOR HIV TESTING? YAB HIV 1 13:01:00 Test Item Value Reference Range Interpretation Comments AB HIV 1 2 (test NONREACTIVE NONREACTIVE Done by [facility] code = [id number]) 4th Gen HIV Ag/Ab Combo Screen IS CONSENT FORM SIGNED FOR HIV TESTING? YCBC W/AUTO [id number] 11:59:00 Test Item Value Reference Range Interpretation Comments WHITE BLOOD CELL (test code = WBC) 6.8 K/mm3 6.6-12.1 N RED BLOOD CELL (test code = RBC) 3.92 M/mm3 3.45-5.01 N HEMOGLOBIN (test code = HGB) 11.1 g/dL 10.7-13.9 N HEMATOCRIT (test code = HCT) 34.6 % 32.1-42.1 N MEAN CELL VOLUME (test code = MCV) 88 fL 84.1-94.8 N MEAN CELL HGB (test code = MCH) 28.3 pg 27-35 N MEAN CELL HGB CONCETRATION (test 32.1 gm/dL 32.2-34.1 L code = MCHC) RED CELL DISTRIBUTION WIDTH (test 14.4 % 12.4-16.5 N code = RDW) PLATELET COUNT (test code = PLT) 277 K/mm3 133-385 N MEAN PLATELET VOLUME (test code = 12.4 fl 9.1-12.7 N MPV) NEUTROPHIL % (test code = NT%) 65.8 % 56.5-79.4 N LYMPHOCYTE % (test code = LY%) 25.7 % 14.3-34.3 N MONOCYTE % (test code = MO%) 6.3 % 5.1-10.4 N EOSINOPHIL % (test code = EO%) 0.9 % 0.1-3.0 N BASOPHIL % (test code = BA%) 0.7 % 0.1-1.0 N NEUTROPHIL # (test code = NT#) 4.5 K/mm3 LYMPHOCYTE # (test code = LY#) 1.8 K/mm3 MONOCYTE # (test code = MO#) 0.4 K/mm3 EOSINOPHIL # (test code = EO#) 0.06 K/mm3 BASOPHIL # (test code = BA#) 0.1 K/mm3 RBC MORPHOLOGY REQUIRED (test code NORMAL NORMAL = RBCM) PLATELET MORPHOLOGY REQUIRED (test NORMAL NORMAL code = PLTMR) Novel Coronavirus 02:11:00 Test Item Value Reference Range Interpretation Comments Novel Coronavirus Negative Negative Positive r esults are 2019 Inhouse (test indicativ e of the presence code = [id number]) ofSARS-CoV -2 RNA, clinical correlation wit h patient historyand othe r diagnostic info rmation is necessary to determinepatien t infection status. Positiv e results do not rule out bacterial infection or co -infection with other viru ses. Negative result s do not preclude SARS-C oV-2 infection andsh ould not be used as the milton e basis for patient managementdecis ions. Negative result s must be combined with otherclinical observations, p atient history, and epidemiological information . Detection of SARS-CoV-2 RNA may be affe cted bysample collec tion methods, storag e conditions, and /or stageof infection. Kellie l RNA mutations, vacc inations, antiviraltherap eutics, antibiotics, chemotherapeuti c orimmunosuppres haily drugs have not been e valuated for effectson d etection. Results are for the identification of SARS-CoV-2 RNA usingthe Mcneil M2000 Sy stem under the FDA Emergen cy UseAuthorizatio n. The testing is perf ormed by personneltraine d in the procedures for the Mcneil M2000 molecular diagnostic SARS-CoV-2 assa y in vitro. Novel Coronavirus 02:10:00 Test Item Value Reference Range Interpretation Comments Novel Coronavirus Negative Negative Positive r esults are 2019 Inhouse (test indicativ e of the presence code = [id number]) ofSARS-CoV -2 RNA, clinical correlation wit h patient historyand othe r diagnostic info rmation is necessary to determinepatien t infection status. Positiv e results do not rule out bacterial infection or co -infection with other viru ses. Negative result s do not preclude SARS-C oV-2 infection andsh ould not be used as the milton e basis for patient managementdecis ions. Negative result s must be combined with otherclinical observations, p atient history, and epidemiological information . Detection of SARS-CoV-2 RNA may be affe cted bysample collec tion methods, storag e conditions, and /or stageof infection. Kellie l RNA mutations, vacc inations, antiviraltherap eutics, antibiotics, chemotherapeuti c orimmunosuppres haily drugs have not been e valuated for effectson d etection. Results are for the identification of SARS-CoV-2 RNA usingthe [employer] M2000 Sy stem under the FDA Emergen cy UseAuthorizatio n. The testing is perf ormed by hilaria giron in the procedures for the [employer] M2000 molecular diagnostic SARS-CoV-2 assa y in vitro. - [place] [id number] 16:41:00 Patient Name: RIAN HAN Unit No: [id number] EXAMS: CPT CODE: [id number] [place] LTD [address] [facility] [address] [place], [place] [address] [facility] OBSTETRICAL ULTRASOUND REPORT Pat. Name: RIAN HAN Pat. No: [id number] Study Date: 01/30/2020 3:42pm , Age: 07 1975, 44 Pregnancies: 6, Para 4 LMP: 06/01/2019 GA by LMP: 34w5d GA by 1st: 34w5d GA Selected: 34w5d (From First S) EDSON: 03/07/2020 Referring MD: EMBER LANGLEY Adult Basic Education Teacher: Trevor House RDMS CPT4: USPREGLTD Hist/Ind: Oligohydramnios OB Ltd Scan #2 Cervical Length: 3.2 cm Heart Rate: 132 bpm Amniotic Fluid Index: 06.0cm (08.0- 24.9)* Q1:4.6cm Q2: 1.4cm Q3: 0.0cm Q4: 0.0cm CLINICAL SUMMARY Type of Gestation: Rojas Intrauterine in vertex presentation. motion and organs seen: heart motion seen body and limb movements observed tone noted Placental location: Anterior Placental maturity : Grade 2 There is no evidence of placenta previa. Amniotic fluid volume is decreased (TAE 6). Uterus and adnexa: No significant abnormality is seen. Thank you for allowing us to participate in the care of this patient. COMMUNICATION WITH DR. LANGLEY IS INITIATED. Roverto Sanchez M.D. Electronic Signature 01/30/2020 04:41pm at 1641 Reported and signed by: Roverto Sanchez MD [facility] NAME: RIAN HAN Radiology Department PHYS: Ember Ambrocio MD [address] : 1975 AGE: 44 SEX: F [place], [place] [address] LOC: SimaRAD PHONE #: [phone] EXAM DATE: 01/30/2020 STATUS: DANIEL CLI FAX #: [phone] RAD NO: Page 1 Signed Report (CONTINUED) Patient Name: RIAN HAN Unit No: [id number] EXAMS: CPT CODE: [id number] LTD 09263 <Continued> CC: Ember Langley Technologist: Trevor House, SHADY Probe:Trnscrbd D/ (1640) David Orig Print D/T: S: 01/30/2020 (1640) The [facility] [place] NAME: RIAN HAN Radiology Depa rtment PHYS: Ember Ambrocio MD [address] : 1975 AGE: 44 SEX: F [place] [address] LOC: [facility] PHONE #: [phone] EXAM DATE: 01/30/2020 STATUS: REG CLI FAX #: [phone] RAD NO: Page 2 Signed Report Patient Name: RIAN HAN Unit No: [id number] EXAMS: CPT CODE: [id number] US LTD [address]441 <Continued> The [facility] [place] NAME: EVENURIA SCHMIDHA Radiology DepartmentPHYS: Ember Ambrocio MD [address] : 1975 AGE: 44 SEX: F [place] [address] LOC: [facility] PHONE #: [phone] EXAM DATE: 01/30/2020 STATUS: REG CLI FAX #: [phone] RA D NO: Page 3 Signed Report- US PREG AFTER [id number] 10:34:00 Patient Name: RIAN HAN Unit No: [id number] EXAMS: CPT CODE: [id number] US PREG AFTER 1ST TRI [address] [facility] [address] [place], [place] [address] OBSTETRICAL ULTRASOUND REPORT Pat. Name: RIAN HAN Pat. No: [id number] StudyDate: 10/09/2019 9:06am , Age: 07 1975, 44 Pregnancies: 6, Para 4 LMP: 06/01/2019 GA by LMP: 18w4d GA by US: 18w5d GA Selected: 18w4d (From Known E) EDSON: 03/07/2020 Referring MD: EMBER LANGLEY Adult Basic Education Teacher: Rian Cota RDMS CPT4: [id number] Admitting MD: EMBER LANGLEY Hist/Ind: ANATOMY SCAN 1 ------- MEASUREMENTS AGE GROWTH EVALUATION Measurement GA Range Srce %for GA Ratios ----- ---- ------- BPD 4.0 cm 18w0d (97a3q-91j4o) Hadl BPD 24% FL/BPD 0.78 HC 15.3 cm 18w2d (57y0f-99k7o) Hadl HC 41% FL/AC 0.22 APD 4.5 cm APD HC/AC 1.10 (1.07 - 1.26) TAD 4.4 cm TAD CI 0.77 (0.70 -0.86) AC 14.0 cm 19w0d (56k4o-23w9k) Hadl AC 61% FL 3.1 cm 19w2d (57l8e-74g0e) Hadl FL 65% HL 3.1 cm 20w3d (37p2m-21g4u) Jet HL 81% GA for sonogram 18w5d (28w7k-27f8q) Weight Estimate: based on (BPD,HC,AC,FL) Hadlock Weight: 286 gm (244-328) Hadlock : 0lbs, 10oz Cervical Length: 4.5 cm Heart Rate: 149 bpm MATERNAL ANATOMY Fibroids LxHxW (cm) 1: 1.2 x 1.0 x 1.3 Loc: Anterior RtDesc: Intramural Ovaries LxHxW (cm) Right 2.7 x 2.0 x 2.3 Vol: 6.5cc CLINICAL SUMMARY Type of Gestation: Rojas Intrauterine in transverse head mat rt presentation. size is appropriate for gestational age. motion and organs seen: heart motion seen body and limb movements seen Four chamber heart observed [facility] NAME: RIAN HAN Radiology Department PHYS: Ember Ambrocio MD [address] : 1975 AGE: 44 SEX: F [place], [place] [address] LOC: SimaRADPHONE #: [phone] EXAM DATE: 10/09/2019 STATUS: REG CLI FAX #: [phone] RAD NO: Page 1 Signed Report (CONTINUED) Patient Name: RIAN HAN Unit No: [id number] EXAMS: CPT CODE: [id number] US PREG AFTER 1ST TRI 29491 <Continued> Left ventricular outflow tract (LVOT) seen Right ventricular outflow tract (RVOT) seen Regular cardiac rhythm observed Normal intracranial anatomy seen Umbilical cord insertion in fetus seen Three vessel umbilical cord noted Stomach seen. Renal Fossa observed Bladder seen Limited spine motion and organs seen: Body habitus limits exam Difficult to image abno rmalities observed: None seen at this exam Body habitus limits exam Difficult to image Placental location: Anterior Placental maturity : Grade 1 There is no evidence ofplacenta previa. Amniotic fluid volume is normal. Uterus and adnexa: No significant abnormality is seen. Malu Rasmussen M.D. Electronic Signature 10/09/2019 10:34am at 1034 Reported and signed by: Malu Rasmussen MD CC: Ember Langley Technologist: Rian Cota RDMS Probe: Trnscrbd D/ (1034) tDOMIG Orig Print D/T: S: 10/09/2019 (1034) The [facility] [place] NAME: RIAN HAN Radiology Department PHYS: Ember Ambrocio MD [address] : 1975 AGE: 44 SEX: F [place], [place] [address] LOC: [facility] PHONE #: [phone] EXAM DATE: 10/09/2019 STATUS: REG CLI FAX #: [phone] RAD NO: Page 2 Signed Report Patient Name: RIAN HAN Unit No: [id number] EXAMS: CPT CODE: [id number] US PREG AFTER 1ST TRI [address]69 <Continued> The [facility] [place] [place] NAME: RIAN HAN Radiology Department PHYS: Ember Ambrocio MD [address] : 1975 AGE: 44 SEX: F [place], [place] [address] LOC: F.RAD PHONE #: [phone] EXAM DATE: 10/09/2019 STATUS: REG CLI FAX #: [phone] RAD NO: Page 3 Signed ReportPROTEIN CREAT RATIO URINE [id number] 05:53:00 Test Item Value Reference Range Interpretation Comments T. PROT U (test code = 2888-6) 8 mg/dL CREAT U (test code = 3269847265) 118.6 mg/dL Protein/Creatinine Ratio Urine 0.0-2.0 (test code = 4619180005) [facility] (NA, K, CL, CO2, GLUCOSE, BUN, CREATININE, CA)2019-08-01 05:39:00 Test Item Value Reference Range Interpretation Comments NA (test code = 135 mmol/L 135-145 4538015423) K (test code = 4.3 mmol/L 3.5-5 1468942436) CL (test code = 100 mmol/L 98-108 2115140110) CO2 TOTAL (test code = 26 mmol/L 23-31 6515058752) AGAP (test code = 2-16 0759444792) BUN (test code = 10 mg/dL 7-23 4079293879) GLUCOSE (test code = 86 mg/dL 70-110 3879114328) CREATININE (test code = 0.46 mg/dL 0.5-1.04 L 2009436072) CALCIUM (test code = 9.0 mg/dL 8.6-10.6 4914219908) eGFR Calculation mL/min/1.73m2 (Non-) (test code = 3360205957) eGFR Calculation mL/min/1.73m2 () (test code = 2885033782) JOEL (test code = JOEL) Association of Glomerular Filtration Rate (GFR) and Staging of Kidney Disease* + --+ --+ ------+| GFR (mL/min/1.73 m2) ?| With Kidney Damage ?| ?Without Kidney Damage+ --------+ --------+ +| ?>90 ?| ?Stage one ?| ? Normal ?+ ---+ ---+ -------+| ?60-89 ?| ?Stage two ?| ? Decreased GFR ? + --+ --+ ------+| ?30-59 ?| ?Stage three ?| ? Stage three ? + --+ --+ ------+| ?15-29 ?| ?Stage four ? | ? Stage four ?+ ---+ ---+ -------+| ?<15 (or dialysis) ? ?| ?Stage five ? | ? Stage five ?+ ---+ ---+ -------+ *Each stage assumes the associated GFR level has been in effect for at least three months. ?Stages 1 to 5, with or without kidney disease, indicate chronic kidney disease. Notes: Determination of stages one and two (with eGFR >59mL/min/1.73 m2) requires estimation of kidney damage for at least three months as defined by structural or functional abnormalities of the kidney, manifested by either:Pathological abnormalities or Markers of kidney damage (including abnormalities in the composition of the blood or urine or abnormalities in imaging tests). Lab Interpretation Abnormal (test code = 61168-0) [facility] URINALYSIS W SPECIFIC [id number] 14:52:00 Test Item Value Reference Range Interpretation Comments POCT U SP GRAV (test code = . 1.005-1.025 3255) POCT PH U (test code = 3254) 5 mg/dl 5-8 POCT U LEUK EST (test code = negative Negative - Negative 3263) POCT U NIT (test code = 3262) negative Negative - Negative POCT U PROT (test code = 3259) trace Negative - Negative POCT U GLU (test code = 3256) negative Negative - Negative POCT U KETONE (test code = negative Negative - Negative 3258) POCT U UROBILI (test code = . 0.2-1 3260) POCT U BILI (test code = 3261) . Negative - Negative POCT U BLD (test code = 3257) about 250 Negative - Negative POCT U COLOR (test code = 3266) POCT U APPEAR (test code = 3267) [facility]"
[2022-01-12 08:17] LABS: Absolute Lymphocytes (CBC) 1.3 K/uL (0.7-4.9); Hematocrit 39.2 % (36.0-45.0); MPV 8.3 fL (7.6-11.3)
[2022-01-12 08:29] LABS: ALT/SGPT 18 U/L (12-78); AST/SGOT 11 U/L (15-37); Albumin 3.5 g/dL (3.4-5.0); Alkaline Phosphatase 47 U/L (45-117); BUN Blood Urea Nitrogen 12 mg/dL (7-18); Bicarbonate 26 mmol/L (21-32); Bilirubin Direct < 0.1 mg/dL (0-0.2); Bilirubin Total 0.2 mg/dL (0.2-1.0); Glomerular Filtration Rate 106 ml/min (=/>90); Glucose Level 114 mg/dL (74-106); Lipase 111 U/L (73-393); NT PRO-BNP 23 pg/mL (<125); Potassium 3.9 mmol/L (3.5-5.1); Sodium Level 137 mmol/L (136-145); Troponin High Sensitivity 29.7 pg/mL (<58.9)
[2022-01-12] MEDS ORDERED: NA CHLORIDE 0.9% 1,000 ML ONE (08:47)
--- NOTE | 2022-01-12 09:01 | RAD REPORT ---
EXAM DESCRIPTION: Julian Single View01/12/2022 8:26 am CLINICAL HISTORY: Palpitation COMPARISON: 2018 FINDINGS: The lungs appear clear of acute infiltrate. The heart is normal size IMPRESSION: No acute abnormalities displayed
--- NOTE | 2022-01-12 09:07 | EDPHYS ---
Physician Documentation [facility] Name: Irene Church Age: 46 yrs Sex: Female : 1975 Arrival Date: 01/12/2022 Time: 07:31 Bed 20 Private MD: ED Physician Quinten Okeefe HPI: 01/12 07:58 This 46 yrs old Female presents to ER via EMS with complaints of Palpitations rn - shorness of breath. 07:58 The patient presents with a history of heart racing. Context: The symptoms occur at rn rest. Onset: The symptoms/episode began/occurred 3 day(s) ago. Duration: The patient or guardian reports multiple episodes, that are intermittent. Modifying factors: The symptoms are aggravated by nothing. The symptoms are alleviated by nothing. Associated signs and symptoms: Pertinent positives: SOB, Pertinent negatives: chest pain, fever, syncope. Severity of symptoms: At their worst the symptoms were moderate in the emergency department the symptoms have improved. The patient has experienced similar episodes in the past. The patient has not recently seen a physician. Pt reports intermittent palpitations and sob, began 3-4 days ago, no fever/cough/chest pain. Reports when heart races she feels sob. No hemoptysis. Reports hx of anxiety and has had similar episodes in past with anxiety but this is lasting longer.. 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 - Social history:: Smoking status: Patient denies any tobacco usage or history of. - Family history:: not pertinent. - Hospitalizations: : No recent hospitalization is reported. ROS: 07:58 Constitutional: Negative for fever, chills, and weight loss, Eyes: Negative for injury, rn pain, redness, and discharge, Neck: Negative for injury, pain, and swelling, Cardiovascular: Negative for chest pain, + palpitations Respiratory: Negative for shortness of breath, cough, wheezing, and pleuritic chest pain, Abdomen/GI: Negative for abdominal pain, nausea, vomiting, diarrhea, and constipation, MS/Extremity: Negative for injury and deformity, Skin: Negative for injury, rash, and discoloration, Neuro: Negative for headache, weakness, numbness, tingling, and seizure. Exam: 07:58 Constitutional: This is a well developed, well nourished patient who is awake, alert, rn and in no acute distress. Head/Face: Normocephalic, atraumatic. Cardiovascular: Regular rate and rhythm. No pulse deficits. Respiratory: Speaking full sentences, unlabored. No increased work of breathing, no retractions or nasal flaring. Abdomen/GI: Soft, non-tender Skin: Warm, dry MS/ Extremity: Pulses equal, no cyanosis Neuro: Awake and alert, GCS 15 08:06 ECG was reviewed by the Attending Physician. rn Vital Signs: 07:25 BP 170 / 111; Pulse 100; Resp 12 S; Temp 99.4(A); Pulse Ox 98% on R/A; Weight 96.62 kg jg9 (R); Height 5 ft. 3 in. (160.02 cm) (R); Pain 0/10; 09:30 BP 127 / 78; Pulse 83; Resp 13 S; Pulse Ox 99% on R/A; Pain 0/10; jg9 07:25 Body Mass Index 37.73 (96.62 kg, 160.02 cm) jg9 MDM: 07:31 Patient medically screened. rn 09:05 Data reviewed: vital signs, nurses notes, lab test result(s), EKG, radiologic studies, rn plain films, and as a result, I will discharge patient. 09:05 Counseling: I had a detailed discussion with the patient and/or guardian regarding: the rn historical points, exam findings, and any diagnostic results supporting the discharge/admit diagnosis, lab results, radiology results, the need for outpatient follow up, to return to the emergency department if symptoms worsen or persist or if there are any questions or concerns that arise at home. Response to treatment: the patient's symptoms have mildly improved after treatment, and as a result, I will discharge patient. Special discussion: I discussed with the patient/guardian in detail that at this point there is no indication for admission to the hospital. It is understood, however, that if the symptoms persist or worsen the patient needs to return immediately for re-evaluation. Based on the history and exam findings, there is no indication for further emergent testing or inpatient evaluation. 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 I discussed with the patient/guardian the need to see the primary care provider for further evaluation of the symptoms. 01/12 07:32 Order name: Basic Metabolic Panel; Complete Time: 08:36 rn 01/12 07:32 Order name: CBC with Diff; Complete Time: 08:36 rn 01/12 07:32 Order name: LFT's; Complete Time: 08:36 rn 01/12 07:32 Order name: NT PRO-BNP; Complete Time: 08:36 rn 01/12 07:32 Order name: Troponin HS; Complete Time: 08:36 rn 01/12 07:32 Order name: Lipase; Complete Time: 08:36 01/12 07:32 Order name: XRAY Chest (1 view); Complete Time: 09:05 rn 01/12 07:32 Order name: EKG; Complete Time: 07:32 rn 01/12 07:32 Order name: Cardiac monitoring; Complete Time: 08:37 rn 01/12 07:32 Order name: EKG - Nurse/Tech; Complete Time: 08:37 rn 01/12 07:32 Order name: D-Dimer; Complete Time: 08:36 rn 01/12 09:21 Order name: Urine Dipstick-Ancillary EDMS 01/12 09:39 Order name: Urine --Ancillary (enter results) bd 01/12 07:32 Order name: IV Saline Lock; Complete Time: 08:37 rn 01/12 07:32 Order name: Labs collected and sent; Complete Time: 08:37 rn 01/12 07:32 Order name: O2 Sat Monitoring; Complete Time: 08:37 rn 01/12 07:32 Order name: Urine Dipstick-Ancillary (obtain specimen); Complete Time: 09:38 rn 01/12 07:32 Order name: Urine Test (obtain specimen); Complete Time: 09:38 rn EC:06 Rate is 97 beats/min. Rhythm is regular. QRS [place] is Normal. PA interval is normal. QRS rn interval is normal. QT interval is normal. No Q waves. T waves are Normal. No ST changes noted. Clinical impression: Normal ECG. Interpreted by me. Reviewed by me. Administered Medications: 08:43 Drug: NS 0.9% 1000 ml Route: IV; Rate: 1000 ml; Site: left forearm; jg9 09:39 Follow up: IV Status: Completed infusion; IV Intake: 800ml jg9 Point of Care Testing: Urine : 09:30 hCG Reading: Negative; Control Reading: Positive; jg9 Disposition Summary: 01/12/22 09:06 Discharge Ordered Location: Home rn Problem: new rn Symptoms: have improved rn Condition: Stable rn Diagnosis - Palpitations rn Followup: rn - With: Private Physician - When: As needed - Reason: Recheck today's complaints, Re-evaluation by your physician Discharge Instructions: - Discharge Summary Sheet rn - Palpitations rn Forms: - Medication Reconciliation Form rn - Thank You Letter 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
--- NOTE | 2022-01-12 09:07 | ER ---
Nurse's Notes [facility] Name: Irene Church Age: 46 yrs Sex: Female : 1975 Arrival Date: 01/12/2022 Time: 07:31 Bed 20 Private MD: Diagnosis: Palpitations Presentation: 01/12 07:20 Chief complaint: Patient states: palpitations and sob on and off for the past few days, jg9 Hx of anxiety but symptoms lingering longer and anti-anxiety medications not helping, patient also had oral surgery recently but reports no pain at this time. Coronavirus screen: Vaccine status: Patient reports being unvaccinated. Ebola Screen: Patient negative for fever greater than or equal to 101.5 degrees Fahrenheit, and additional compatible Ebola Virus Disease symptoms Patient denies exposure to infectious person. Patient denies travel to an Ebola-affected area in the 21 days before illness onset. 07:20 Method Of Arrival: EMS: [facility] j9 07:25 Initial Sepsis Screen: Does the patient meet any 2 criteria? No. Patient's initial jg9 sepsis screen is negative. Does the patient have a suspected source of infection? No. Patient's initial sepsis screen is negative. Risk Assessment: Do you want to hurt yourself or someone else? Patient reports no desire to harm self or others. Onset of symptoms is unknown. 07:25 Acuity: ANDERS 3 jg9 Triage Assessment: 07:20 General: Appears in no apparent distress. Behavior is calm, cooperative. Pain: Denies jg9 pain. EENT: No deficits noted. Neuro: No deficits noted. Cardiovascular: Reports palpitations. Respiratory: Reports shortness of breath intermittent with cardiac palpitations. GI: No deficits noted. : No deficits noted. Derm: No deficits noted. Musculoskeletal: No deficits noted. 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 - Social history:: Smoking status: Patient denies any tobacco usage or history of. - Family history:: not pertinent. - Hospitalizations: : No recent hospitalization is reported. Screenin:36 Abuse screen: Denies threats or abuse. Denies injuries from another. Nutritional jg9 screening: No deficits noted. Tuberculosis screening: No symptoms or risk factors identified. Fall Risk None identified. Assessment: 08:04 Reassessment: No changes from previously documented assessment. Patient and/or family jg9 updated on plan of care and expected duration. Pain level reassessed. Patient is alert, oriented x 3, equal unlabored respirations, skin warm/dry/pink. Vital Signs: 07:25 BP 170 / 111; Pulse 100; Resp 12 S; Temp 99.4(A); Pulse Ox 98% on R/A; Weight 96.62 kg jg9 (R); Height 5 ft. 3 in. (160.02 cm) (R); Pain 0/10; 09:30 BP 127 / 78; Pulse 83; Resp 13 S; Pulse Ox 99% on R/A; Pain 0/10; jg9 07:25 Body Mass Index 37.73 (96.62 kg, 160.02 cm) jg9 ED Course: 07:31 Patient arrived in ED. jg9 07:31 Quinten Okeefe MD is Attending Physician. rn 07:31 Sylvie More, RADHA is Primary Nurse. jg9 07:34 Triage completed. jg9 07:36 Arm band placed on right wrist. jg9 07:38 Patient has correct armband on for positive identification. Bed in low position. Call jg9 light in reach. Side rails up X 1. 07:54 Inserted saline lock: 22 gauge in left forearm, using aseptic technique. jg9 08:11 X-ray completed. Portable x-ray completed in exam room. md1 08:12 Note: EKG leads removed by xray in order to change patient out for exam. . 1 08:27 XRAY Chest (1 view) In Process Unspecified. EDMS 09:39 No provider procedures requiring assistance completed. jg9 09:39 IV discontinued. jg9 09:40 Urine --Ancillary (enter results) Sent. jg9 Administered Medications: 08:43 Drug: NS 0.9% 1000 ml Route: IV; Rate: 1000 ml; Site: left forearm; jg9 09:39 Follow up: IV Status: Completed infusion; IV Intake: 800ml jg9 Medication: 08:04 VIS not applicable for this client. jg9 Point of Care Testing: Urine : 09:30 hCG Reading: Negative; Control Reading: Positive; jg9 Intake: 09:39 IV: 800ml; Total: 800ml. jg9 Outcome: 09:06 Discharge ordered by . rn 09:39 Discharged to home ambulatory. jg9 09:39 Condition: stable 09:39 Discharge instructions given to patient, Instructed on discharge instructions, follow up and referral plans. Demonstrated understanding of instructions, follow-up care. 09:39 Patient left the ED. jg9 Signatures: Dispatcher [employer] EDMS Quinten Okeefe MD MD rn Lou Duckworth Jennifer, RN RN jg9 Corrections: (The following items were deleted from the chart) 08:12 08:11 Note: . mike mckeon
[2022-01-12 09:21] LABS: Urine Blood 2+ (Negative); Urine Glucose Negative (Negative); Urine Protein Negative (Negative)
[2022-01-12 10:04] VITALS: BP 170/111; TEMP 99.4; O2SAT 98
--- NOTE | 2022-01-13 08:55 | EKG ---
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
== END 2022-01-12 09:39 | disposition home or self-care (01) ==
LOC: ER 07:19
DX: R00.2 Palpitations (principal); F41.9 Anxiety disorder, unspecified; F32.A Depression, unspecified
CPT/HCPCS: 85025; 80048; 36415; 81025; 85379; 80076; 81003; 84484; 83690; 83880; 71045; J7030; 93005; 96360; 99284